=== PATIENT | male | born 1970 | race Hispanic/Latino ===

== ENCOUNTER → 2018-07-10 | Day surgery (SDC) | payer OTHER ==
[~2018-07-10] MED LIST: FENTANYL CITRATE/PF 100MCG/2 ML INJ ONE; HYOSCYAMINE SULFATE 0.5 MG/ML AMP ONE; LISINOPRIL2.5 MG PO; METFORMIN HCL500 MG PO; MIDAZOLAM HCL 2 MG/2 ML VIAL ONE; PANTOPRAZOLE SO40 MG PO; PRAVASTATIN SOD10 MG PO; PROPOFOL IV EMULSION 10 MG/ML 50 ML VIAL ONE
--- NOTE | 2018-07-10 13:32 | Operative Report ---
DATE OF PROCEDURE: July 10, 2018 REFERRING PHYSICIAN: Dr. Ba Gee PROCEDURE PERFORMED: Colonoscopy and polypectomy. INDICATIONS FOR COLONOSCOPY: Colorectal cancer screening and history of bright red blood per rectum. MEDICATION: Patient was done under MAC. Please see anesthesiologist's note. PROCEDURE: With the patient in the left lateral decubitus position, the flexible fiberoptic Olympus colonoscope was inserted into the rectum with ease and advanced all the way to the cecum. The scope was then withdrawn slowly, and the mucosa overlying the ascending and the transverse colon other than for some scattered diverticular disease appeared to be within normal limits. The transverse and descending grossly appeared to be within normal limits. Some diverticular disease was also noted in the sigmoid colon. Three polyps were hot biopsied from the sigmoid colon. The rectum appeared to be within normal limits. The scope was then retroflexed into the distal rectum and small internal hemorrhoids were noted, none of which was actively bleeding. The scope was then straightened out. It was subsequently withdrawn. Patient tolerated the procedure well. IMPRESSION 1. Diverticulosis. 2. Sigmoid colon polyps times 3, hot biopsied. 3. Internal hemorrhoids, none actively bleeding. PLAN: Follow up histology. Initiate high-fiber and low-fat diet. Initiate high-fiber supplement. Start hydrocortisone suppositories 25 mg 1 b.i.d. times 10 days and then p.r.n. Patient might benefit from a followup colonoscopy in 3 years. Job#: [id number] VT
== END | disposition home or self-care (01) ==
LOC: OR 09:07
PROVIDERS: ATTEND Internal Medicine Gastroenterology
DX: Z12.11 Encounter for screening for malignant neoplasm of colon (principal); R12 Heartburn; R92.1 Mammographic calcification found on diagnostic imaging of breast; E11.9 Type 2 diabetes mellitus without complications; E78.00 Pure hypercholesterolemia, unspecified; I10 Essential (primary) hypertension; K57.30 Diverticulosis of large intestine without perforation or abscess without bleeding; K64.8 Other hemorrhoids; K63.5 Polyp of colon; G47.33 Obstructive sleep apnea (adult) (pediatric); E78.5 Hyperlipidemia, unspecified; K21.9 Gastro-esophageal reflux disease without esophagitis
CPT/HCPCS: 36415; 45384; 82948; 93005; J1980; J2250

== ENCOUNTER → 2020-04-04 | Day surgery (SDC) | payer OTHER ==
[~2020-04-04] MED LIST changes: +GLUCAGON FOR INJ 1 MG VIAL ONE; +HYOSCYAMINE 0.125 MG TAB ONE; -HYOSCYAMINE SULFATE 0.5 MG/ML AMP ONE; +LIDOCAINE HCL 2% LOCAL INJ 5 ML SDV VIAL INJ ONE; -MIDAZOLAM HCL 2 MG/2 ML VIAL ONE; +MIDAZOLAM HCL 5 MG/ML VIAL ONE; +PROPOFOL IV EMULSION 10 MG/ML 20 ML VIAL ONE; -PROPOFOL IV EMULSION 10 MG/ML 50 ML VIAL ONE; +XIGDUO XR 5 MG1 EACH PO
--- OUTSIDE RECORDS SUMMARY | 2020-04-04 08:05 | XMS REPORT | Clinical Summary ---
Author Author [facility] Address Unknown Phone Unavailable Care Team Providers Care Health Concierge Name Role Phone Ashvin Galvin MD PCP Allergies No Known Allergies Medications End Date Status Medication Sig Dispensed Refills Start Date Active traMADol (ULTRAM) 50 mg TAKE 1 TABLET 0 tablet BY MOUTH 9 EVERY 4-6 HOURS NEEDED Active atorvastatin (LIPITOR) 10 Take 10 mg by 0 MG tablet mouth daily. Active pantoprazole (PROTONIX) Take 40 mg by 0 40 MG EC tablet mouth daily. Active lisinopril Take 2.5 mg 0 (PRINIVIL,ZESTRIL) 2.5 mg by mouth tablet daily. 06/26/2020 Active metFORMIN XR Take 1 tablet 180 tablet 3 (GLUCOPHAGE-XR) 500 mg 24 (500 mg 9 hr tabletIndications: total) by Diabetes mellitus type mouth 2 (two) II, non insulin dependent times a day (HCC) after meals. Active blood sugar diagnostic Test blood 200 strip 11 strips (CONTOUR TEST sugar BID for 9 STRIPS) strip test dx E11.9 stripsIndications: Diabetes mellitus type II, non insulin dependent (HCC) 06/21/2019 Discontinued (Reorder) metFORMIN (GLUCOPHAGE) Take 1 tablet 0 06/11/2 01 500 mg tablet by mouth 2 9 (two) times a day with meals. 06/27/2019 ipratropium (ATROVENT) 2 sprays into 30 mL 0 0 0.03 % nasal each nostril 9 sprayIndications: Acute 3 (three) non-recurrent maxillary times a day sinusitis for 7 days. 06/25/2019 amoxicillin-pot Take 1 tablet 10 tablet 0 06/20/20 1 clavulanate (AUGMENTIN) by mouth 2 9 875-125 mg per (two) times a tabletIndications: Acute day for 5 non-recurrent maxillary days. Take if sinusitis fever, worsening, or pus like drainage 06/27/2019 Discontinued metFORMIN (GLUCOPHAGE) Take 2 360 tablet 1 500 mg tabletIndications: tablets 9 Diabetes mellitus type (1,000 mg II, non insulin dependent total) by (HCC) mouth 2 (two) times a day with meals for 180 days. Active Problems Problem Noted Date S/P gastric surgery 06/20/2019 Overview: Gastric sleeve Diabetes mellitus type II, non insulin dependent Hyperlipidemia LDL goal <70 06/20/2019 GERD with esophagitis 06/20/2019 Encounters Care Team Description Date Type Specialty Christi Zamora MA Diabetes mellitus type II, non insulin d ependent ([facility]) (Primary Dx) 06/27/2019 Telephone Internal Medicine Ashvin Galvin MD Acute non-recurrent maxillary sinusitis (Primary Dx); Diabetes mellitus type II, non insulin dependent ([facility]); Establishing care with new doctor, encounter for 06/20/2019 Office Visit Internal Medicine after 04/04/2019 Family History Medical History Relation Name Comments Cancer Father Diabetes type II Father Hyperlipidemia Father Hypertension Father Kidney disease Father Obesity Mother Relation Name Status Comments Father Alive Mother Alive Social History Date Tobacco Use Types Packs/Day Years Used Never Smoker Smokeless Tobacco: Never Used Drinks/Week oz/Week Comments Alcohol Use Yes Sex Assigned at Date Recorded Not on file Industry Job Start Date Occupation Not on file Not on file Not on file Travel End Travel History Travel Start No recent travel history available. Last Filed Vital Signs Reading Time Taken Comments Vital Sign 128/82 06/20/2019 8:11 AM CDT Blood Pressure 77 06/20/2019 8:11 AM CDT Pulse - - Temperature - - Respiratory Rate - - Oxygen Saturation - - Inhaled Oxygen Concentration 83.9 kg (185 lb) 06/20/2019 8:11 AM CDT Weight 167.6 cm (5' 6") 06/20/2019 8:11 AM CDT Height 29.86 06/20/2019 8:11 AM CDT Body Mass Index Plan of Treatment Health Maintenance Due Date Last Done Comments DIABETIC RETINAL EYE EXAM 1970 DIABETIC FOOT EXAM 1980 URINE MICROALBUMIN 06/20/2020 06/20/2019 INFLUENZA VACCINE 06/23/2020 Procedures Comments Procedure Name Priority Date/Time Associated Diag nosis MICROSCOPIC EXAMINATION Routine 06/20/2019 8:57 AM CDT MICROALBUMIN / CREATININE Routine 06/20/2019 Diab etes mellitus type URINE RATIO 8:57 AM CDT II, non insulin dep endent (HCC) URINALYSIS, COMPLETE, Routine 06/20/2019 Diabetes mellitus type WITH REFLEX TO CULTURE 8:57 AM CDT II, non insuli n dependent (HCC) LDL CHOLESTEROL, DIRECT Routine 06/20/2019 Diabet es mellitus type 8:57 AM CDT II, non insulin dependent (HCC) CBC WITH PLATELET AND Routine 06/20/2019 Diabetes mellitus type DIFFERENTIAL 8:57 AM CDT II, non insulin dep endent (HCC) CHOLESTEROL Routine 06/20/2019 Diabetes mellit us type 8:57 AM CDT II, non insulin dependent (HCC) COMPREHENSIVE METABOLIC Routine 06/20/2019 Diabet es mellitus type PANEL 8:57 AM CDT II, non insulin dep endent (HCC) HDL CHOLESTEROL Routine 06/20/2019 Diabetes melli tus type 8:57 AM CDT II, non insulin dependent (HCC) HEMOGLOBIN A1C Routine 06/20/2019 Diabetes mellit us type 8:57 AM CDT II, non insulin dependent (HCC) after 04/04/2019 Results * URINALYSIS, COMPLETE, WITH REFLEX TO CULTURE (06/20/2019 8:57 AM CDT) Specific >=1.030 (A) 1.005 - 1.030 [facility] gravity, urine pH, urine 5.5 5.0 - 7.5 [facility] Color, UA Yellow Yellow [facility] Appearance Clear Clear [facility] WBC esterase, Negative Negative [facility] urine Protein, UA Negative Negative/Trace [facility] Glucose, urine 2+ (A) Negative [facility] Ketones, UA Trace (A) Negative [facility] Occult blood, Negative Negative [facility] urine Bilirubin, UA Negative Negative [facility] Urobilinogen, 1.0 0.2 - 1.0 mg/dL [facility] UA Nitrite, UA Negative Negative [facility] Microscopic CommentComment: Microscopic [facility] examination follows if indicated. Microscopic See below:Comment: Microscopic [facility] examination was indicated and was performed. Urinalysis CommentComment: This specimen [facility] reflex will not reflex to a Urine Culture. Specimen Narrative Performed At Performed at: [address] [place] [address] [address] Dynamometer Tester: Leonardo Plaza MD, Phone: [phone] Performing Organization Address [facility] one Number [facility] * Microscopic Examination (06/20/2019 8:57 AM CDT) WBC, UA 0-5 0 - 5 /hpf [facility] RBC, UA 0-2 0 - 2 /hpf [facility] Epithelial 0-10 0 - 10 /hpf [facility] cells (non renal) Crystals, urine Present (A) N/A [facility] Crystal type Calcium Oxalate N/A [facility] Mucus, UA Present Not Estab. [facility] Bacteria, UA Few None seen/Few [facility] Specimen Narrative Performed At Performed at: [address] [address] Dynamometer Tester: Leonardo Plaza MD, Phone: [phone] Performing Organization Address [facility] one Number [facility] * Microalbumin / creatinine urine ratio (06/20/2019 8:57 AM CDT) Creatinine, 207.1 Not Estab. mg/dL [facility] urine, random Albumin, urine 14.6 Not Estab. ug/mL [facility] Microalbumin/cr 7.0 0.0 - 30.0 mg/g [facility] eatinine ratio Comment: creat Normal: 0.0 - 30.0 Albuminuria: 31.0 - 300.0 Clinical albuminuria: >300.0 Specimen Urine Narrative Performed At Performed at: [address] [place], [place] [address] [address] Dynamometer Tester: Leonardo Plaza MD, Phone: [phone] Performing Organization Address [facility] one Number [facility] * CBC with platelet and differential (06/20/2019 8:57 AM CDT) WBC 4.5 3.4 - 10.8 x10E3/uL [facility] RBC 5.07 4.14 - 5.80 x10E6/uL [facility] HGB 12.4 (L) 13.0 - 17.7 g/dL [facility] HCT 37.4 (L) 37.5 - 51.0 % [facility] MCV 74 (L) 79 - 97 fL [facility] MCH 24.5 (L) 26.6 - 33.0 pg [facility] MCHC 33.2 31.5 - 35.7 g/dL [facility] RDW 17.0 (H) 12.3 - 15.4 % [facility] Platelet count 275 150 - 450 x10E3/uL [facility] Neutrophils 50 Not Estab. % [facility] Lymphocytes 39 Not Estab. % [facility] Monocytes 9 Not Estab. % [facility] Eosinophils 1 Not Estab. % [facility] Basophils 1 Not Estab. % [facility] Neutrophils, 2.2 1.4 - 7.0 x10E3/uL [facility] absolute Lymphocytes, 1.8 0.7 - 3.1 x10E3/uL [facility] absolute Monocytes, 0.4 0.1 - 0.9 x10E3/uL [facility] absolute Eosinophils, 0.0 0.0 - 0.4 x10E3/uL [facility] absolute Basophils, 0.0 0.0 - 0.2 x10E3/uL [facility] absolute Immature 0 Not Estab. % [facility] granulocytes Immature grans 0.0 0.0 - 0.1 x10E3/uL [facility] (abs) Specimen Blood Narrative Performed At Performed at: 01 - [facility] [place] [address] Dynamometer Tester: Leonardo Plaza MD, Phone: [phone] Performing Organization Address [facility] one Number [facility] * LDL cholesterol, direct (06/20/2019 8:57 AM CDT) LDL cholesterol 75 0 - 99 mg/dL [facility] Specimen Blood Narrative Performed At Performed at: 01 - [facility] [address], [place], [place] [address] Dynamometer Tester: Leonardo Plaza MD, Phone: [phone] Performing Organization Address [facility] one [facility] * HDL cholesterol (06/20/2019 8:57 AM CDT) HDL cholesterol 48 >39 mg/dL [facility] Specimen Blood Narrative Performed At Performed at: [address] [place] [address] Dynamometer Tester: Leonardo Plaza MD, Phone: [phone] Performing Organization Address [facility] * Hemoglobin A1c (06/20/2019 8:57 AM CDT) [facility] Hemoglobin A1C 8.3 (H) 4.8 - 5.6 % [facility] Comment: Prediabetes: 5.7 - 6.4 Diabetes: >6.4 Glycemic control for adults with diabetes: <7.0 Specimen Blood Narrative Performed At Performed at: [address] [address] Dynamometer Tester: Leonardo Plaza MD, Phone: [phone] Performing Organization Address [facility] one [facility] * Cholesterol (06/20/2019 8:57 AM CDT) Pathologist [facility] Cholesterol 138 100 - 199 mg/dL [facility] Specimen Blood Narrative Performed At Performed at: [address] [address] Dynamometer Tester: Leonardo Plaza MD, Phone: [phone] Performing Organization Address [facility] [address] [facility] * Comprehensive metabolic panel (06/20/2019 8:57 AM CDT) Glucose 145 (H) 65 - 99 mg/dL [facility] BUN 19 6 - 24 mg/dL [facility] Creatinine 0.74 (L) 0.76 - 1.27 mg/dL [facility] EGFR Non-Afr. 108 >59 mL/min/1.73 [facility] [place] EGFR 125 >59 mL/min/1.73 [facility] [place] BUN/creatinine 26 (H) 9 - 20 [facility] ratio Sodium 140 134 - 144 mmol/L [facility] Potassium 4.2 3.5 - 5.2 mmol/L [facility] Chloride 101 96 - 106 mmol/L [facility] CO2 24 20 - 29 mmol/L [facility] Calcium 8.6 (L) 8.7 - 10.2 mg/dL [facility] Protein 7.2 6.0 - 8.5 g/dL [facility] Albumin, S 4.3 3.5 - 5.5 g/dL [facility] Globulin, total 2.9 1.5 - 4.5 g/dL [facility] Albumin/globuli 1.5 1.2 - 2.2 [facility] n ratio Total bilirubin 0.5 0.0 - 1.2 mg/dL [facility] Alkaline 82 39 - 117 IU/L [facility] phosphatase AST 16 0 - 40 IU/L [facility] ALT 17 0 - 44 IU/L [facility] Specimen Blood Narrative Performed At Performed at: 01 - [facility] [address] [place], [place] [address] Dynamometer Tester: Leonardo Plaza MD, Phone: [phone] Performing Organization Address City/State/Zipcode Ph one Number [facility] after 04/04/2019 Insurance Type Payer Benefit Subscriber ID Effective Phone Address Plan / Dates Group [facility] [id number] xxxxxxxxxxxx 2018- MULTISTATE Present IEBP Advance Directives For more information, please contact: [phone] Patient Assistant Speech Language Pathologist Explanation Type Date Recorded Advance Directives, Living Will and Medical Power of Burr Bench Operator
--- OUTSIDE RECORDS SUMMARY | 2020-04-04 08:05 | XMS REPORT | Continuity of Care Document ---
Author Author [employer] Organization [employer] Address Unknown Phone Unavailable Care Team Providers Care Traveling Phlebotomist Name Role Phone CarePayment Information Exchange Unavailable Un available Problems Problem Status Onset Date Classification Date Reported Comments Source RT SIDE PAIN Active 12/15/2014 [facility] MORBID OBESITY Active 09/18/2014 [facility] 729.5 - PAIN IN LIMB Active 10/13/2012 [facility] Diabetes mellitus (disorder) A ctive Problem [facility] Hypertensive disorder, systemic arterial (disorder) Resolved Problem 10/13/2015 [facility] Morbid obesity (disorder) Acti ve Problem [facility], [facility] Sleep apnea (finding) Active Problem 10/13/2015 [facility], [facility] MORBID OBESITY Active [facility] ABDMNAL PAIN UNSPCF SITE Active [facility] Medications Medication Details Route Status Patient Instructions Ordering Provider Order Date Source Lovenox Notes: (Same as: Loven ox) Inactive 12/15/2014 [facility] Zofran Notes: (Same as: Zofran) Inactive 12/15/2014 [facility] Morphine Notes: (Same as:MORPh ine Sulfate) Inactive 12/15/2014 [facility] LR IV 1,000 mL 1,000 mL, Rate: 100 ml/hr, Infuse over: 10 hr, Route: IV, Dosing Weight 87.273 kg, Total Volume: 1,000, Start date: 12/15/14 10:27:00, Duration: 30 day, Stop date: 01/14/15 10:26:00 Inactive 12/15/2014 [facility] Iohexol Special Instructions: Dose = 2.2ml/kg, Max dose = 100ml -- "To be infused by Radiology Staff ONLY" Inactive 12/15/2014 [facility]ter Iohexol Notes: (same as:Omnipa que 350). Inactive 12/15/2014 [facility] Zofran Notes: (Same as: Zofran) Inactive 12/15/2014 [facility] Morphine Notes: (Same as:MORPh ine Sulfate) Inactive 12/15/2014 [facility] Promethazine Hydrochloride 25 MG Rectal Suppository [Phenergan] 25 mg = 1 supp, MD, Q6H, Nausea & Vomiti ng, # 9 supp, 0 Refill(s) Active 10/18/2014 [facility] Tylenol with Codeine 120 mg-12 mg/5 mL oral liquid 15 mL, PO, Q6H, Pain Score 1-3, # 240 mL, 0 Refill(s) Active 10/18/2014 [facility]ter Phenergan Notes: (Same as: Phe nergan) Inactive 10/18/2014 [facility] Promethazine Hydrochloride 25 MG Rectal Suppository [Phenergan] 25 mg = 1 supp, MD, Q6H, Nausea & Vomiti ng, # 9 supp, 0 Refill(s) Inactive 10/18/2014 [facility] Tylenol with Codeine 120 mg-12 mg/5 mL oral liquid 15 mL, PO, Q6H, Pain Score 1-3, # 240 mL, 0 Refill(s) Inactive 10/18/2014 [facility] Lovenox Notes: (Same as: Loven ox) No Longer Active 10/18/2014 [facility] Tylenol with Codeine 120 mg-12 mg/5 mL oral liquid Notes: (acetaminophen-codeine 120-12 mg/5 ml oral liq) Do not exceed 4gm/day of acetaminophen. (Same as: Tylenol w/Codeine) No Longer Active 10/17/2014 [facility] Acetaminophen 300 MG / Codeine Phosphate 30 MG Oral Tablet [Tylenol with Codeine #3] 1 tab, Route: PO, Drug Form: TAB, Dosing Weight 97.273, kg, Q6H, PRN Pain Score 1-3, Start date: 10/17/14 15:06:00, Duration: 30 day, Stop date: 11/16/14 15:05:00 Inactive 10/17/2014 [facility] Glucagon 1 mg, Route: IM, Drug form: PDR/INJ, PRN, Dosing Weight 97.273, kg, PRN Blood Glucose Results, Start date: 10/16/14 19:18:00, Duration: 30 day, Stop date: 11/15/14 19:17:00 No Longer Active 10/17/2014 [facility] Insulin, Regular, Pork 60 un its) Stable for 28 days at room temperature Expires in days from Date No Longer Active 10/17/2014 [facility] Dextrose 50% Syringe 25 gm, 50 mL, Route: IVP, Drug Form: INJ, Dosing Weight 97.273, kg, PRN, PRN Blood Glucose Results, Start date: 10/16/14 19:18:00, Duration: 30 day, Stop date: 11/15/14 19:17:00 No Longer Active 10/17/2014 [facility] Ondansetron 4 mg, Route: IV, O NCE, Dosing Weight 97.273, kg, Start date: 10/16/14 18:50:00, Stop date: 10/16/14 18:50:00 Inactive 10/17/2014 [facility]: Pharmacy: Use w ithin 6 hours of opening vial or transferring to another container. Discard any unused portion. No Longer Active 10/17/2014 [facility] Hydromorphone Notes: (Same as: Dilaudid) conc = 0.5 mg/ml Hydromorphone PLANER OPERATOR / GRADER Dose: ;Delay: ;Basal: No Longer Active 10/17/2014 [facility] Hydromorphone Notes: Same as: Dilaudid Inactive 10/16/2014 [facility] Morphine Notes: (Same as:MORPh ine Sulfate) Inactive 10/16/2014 [facility] Ondansetron Notes: (Same as: Arnav teran) Inactive 10/16/2014 [facility] Naloxone Notes: Same as Narcan No Longer Active 10/16/2014 [facility] LR IV 1,000 mL 1,000 mL, Rate: 125 ml/hr, Infuse over: 8 hr, Route: IV, Dosing Weight 97.273 kg, Total Volume: 1,000, Start date: 10/16/14 17:44:00, Duration: 30 day, Stop date: 11/15/14 17:43:00 No Longer Active 10/16/2014 [facility] Zofran Notes: (Same as: Zofran) No Longer Active 10/16/2014 [facility] bupivacaine liposome Notes: (S leonor as: Exparel) NOT FOR IV use Postoperative analgesia: Infiltration (local): Dose is based on surgical site and volume required to cover the area (in general, the maximum total dose is 266 mg). Bunionectomy: 7 mL into the tissues surrounding the osteotomy and 1 mL into the subcutaneous tissue of the surgical site (total dose = 8 mL [106 mg]) Hemorrhoidectomy: 30 mL (20 mL vial diluted with 10 mL NS) divided and administered as 6 injections of 5 mL each (total dose = 30 mL [266 mg]) Inactive 10/16/2014 [facility] Mefoxin Notes: (Same As: Mefox in) No Longer Active 10/16/2014 [facility] heparin Notes: porcine heparin Inactive 10/16/2014 [facility] scopolamine Notes: Change patc h every 72 hours (Same as: Transderm-Scop) Inactive 10/16/2014 [facility] glimepiride 0 Refill(s) No Longer Active 10/11/2014 [facility] glimepiride 2 mg oral tablet 2 mg = 1 tab, PO, Daily, # 30 tab, 0 Refill(s) No Longer Active 10/11/2014 [facility] Fenofibrate 130 MG Oral Capsule 130 mg = 1 cap, PO, Daily, # 30 cap, 0 Refill(s) N o Longer Active 10/11/2014 [facility] Metformin 500 mg, PO, Daily, 0 Refill(s) No Longer Active 10/11/2014 [facility] Allergies, Adverse Reactions, Alerts No Known Medication Allergies Immunizations No Data Provided for This Section Results Order Name Results Value Reference Range Date Interpretation Comments Source CHEM PANEL Total Protein 7.2 6.4 - 8.4 12/15/2014 [facility] CHEM PANEL Albumin Lvl 3.5 3.5 - 5.0 12/15/2014 [facility] CHEM PANEL ALT 36 0 - 65 12/15/2014 [facility] CHEM PANEL Alk Phos 76 39 - 136 12/15/2014 [facility] CHEM PANEL Bili Direct 0.2 0.0 - 0.3 12/15/2014 [facility] CHEM PANEL AST 27 0 - 37 12/15/2014 [facility] CHEM PANEL Bili Total 1.3 0.2 - 1.3 12/15/2014 [facility] CHEM PANEL A/G Ratio 0.9 0.7 - 1.6 12/15/2014 [facility] CHEM PANEL Bili Indirect 1.1 0.0 - 1.0 12/15/2014 [facility] CHEM PANEL Globulin 3.7 2.0 - 4.0 12/15/2014 [facility] HEMATOLOGY MCHC 32.4 32.0 - 36.0 12/15/2014 [facility] HEMATOLOGY MCV 85.6 80.0 - 94.0 12/15/2014 [facility] HEMATOLOGY Hct 42.4 42.0 - 54.0 12/15/2014 [facility] HEMATOLOGY MCH 27.8 27.0 - 31.0 12/15/2014 [facility] HEMATOLOGY RDW 12.6 11.5 - 14.5 12/15/2014 [facility] HEMATOLOGY Platelet 267 133 - 450 12/15/2014 [facility] HEMATOLOGY MPV 8.5 7.4 - 10.4 12/15/2014 [facility] HEMATOLOGY WBC 8.0 3.7 - 10.4 12/15/2014 [facility] HEMATOLOGY RBC 4.95 4.70 - 6.10 12/15/2014 [facility] HEMATOLOGY Hgb 13.8 14.0 - 18.0 12/15/2014 [facility] HEMATOLOGY Basophils 0.9 0.0 - 1.0 12/15/2014 [facility] HEMATOLOGY Segs-Bands # 5.2 1.5 - 8.1 12/15/2014 [facility] HEMATOLOGY Eosinophils # 0.0 0.0 - 0.5 12/15/2014 [facility] HEMATOLOGY Basophils # 0.1 0.0 - 0.2 12/15/2014 [facility] HEMATOLOGY Lymphocytes # 2.2 1.0 - 5.5 12/15/2014 [facility] HEMATOLOGY Monocytes # 0.5 0.0 - 0.8 12/15/2014 [facility] HEMATOLOGY Segs 64.9 45.0 - 75.0 12/15/2014 [facility] HEMATOLOGY Lymphocytes 27.2 20.0 - 40.0 12/15/2014 [facility] HEMATOLOGY Monocytes 6.5 2.0 - 12.0 12/15/2014 [facility] HEMATOLOGY Eosinophils 0.5 0.0 - 4.0 12/15/2014 [facility] IMMUNOLOGY CDC HIV 4th GEN Negat omi (12/15/14 1:42 AM) Negative 12/15/2014 [facility] CARDIAC ENZYMES Troponin-I <0.02 0.00 - 0.40 12/15/2014 [facility] CHEM PANEL Bili Total 1.3 0.2 - 1.3 12/15/2014 [facility] CHEM PANEL Alk Phos 82 39 - 136 12/15/2014 [facility] CHEM PANEL AST 39 0 - 37 12/15/2014 [facility] CHEM PANEL Bili Direct 0.4 0.0 - 0.3 12/15/2014 [facility] CHEM PANEL Total Protein 7.8 6.4 - 8.4 12/15/2014 [facility] CHEM PANEL Albumin Lvl 4.0 3.5 - 5.0 12/15/2014 [facility] CHEM PANEL ALT 43 0 - 65 12/15/2014 [facility] CHEM PANEL Bili Indirect 0.9 0.0 - 1.0 12/15/2014 [facility] CHEM PANEL A/G Ratio 1.1 0.7 - 1.6 12/15/2014 [facility] CHEM PANEL Globulin 3.8 2.0 - 4.0 12/15/2014 [facility] CHEM PANEL Lipase Lvl 153 73 - 393 12/15/2014 [facility] CHEM PANEL Glucose Lvl 162 70 - 99 12/15/2014 <sup>2</sup>Interpretive Data: Adult ref erence range values reflect the clinical guidelines
of the [place] [employer]. [facility] CHEM PANEL Chloride Lvl 101 95 - 109 12/15/2014 [facility] CHEM PANEL Creatinine Lvl 0.8 0.5 - 1.4 12/15/2014 [facility] CHEM PANEL Potassium Lvl 3.9 3.5 - 5.1 12/15/2014 [facility] CHEM PANEL BUN 16 7 - 22 12/15/2014 [facility] CHEM PANEL Sodium Lvl 140 135 - 145 12/15/2014 [facility] CHEM PANEL Calcium Lvl 8.7 8.5 - 10.5 12/15/2014 [facility] CHEM PANEL CO2 29 24 - 32 12/15/2014 [facility] CHEM PANEL eGFR 109 12/15/2014 <sup>1</sup>Result Comment: The eGFR is calculated using the CKD-EPI formula. In most young, healthy individuals the eGFR will be >90 mL/min/1.73m2. The eGFR declines with age. An eGFR of 60-89 may be normal in some populations, particularly the elderly, for whom the CKD-EPI formula has not been extensively validated. Use of the eGFR is not recommended in the following populations:& lt;br/>
Individuals with unstable creatinine concentrations, including patients and those with serious co-morbid conditions.

Patients with extremes in muscle mass or diet.

The data above are obtained from the National Kidney Disease Education Program (NKDEP) which additionally recommends that when the eGFR is used in patients with extremes of body mass index for purposes of drug dosing, the eGFR should be multiplied by the estimated BMI. [facility] CHEM PANEL AGAP 13.9 10.0 - 20.0 12/15/2014 [facility] HEMATOLOGY RBC Morph Lita l (12/15/14 1:33 AM) 12/15/2014 [facility] HEMATOLOGY Monocytes 6.0 2.0 - 12.0 12/15/2014 [facility] HEMATOLOGY Plt Morph Lita l (12/15/14 1:33 AM) 12/15/2014 [facility] HEMATOLOGY Atypical Lymphs 0.0 <=0.0 % 12/15/2014 [facility] HEMATOLOGY Lymphocytes 17.0 20.0 - 40.0 12/15/2014 [facility] HEMATOLOGY Segs 77.0 45.0 - 75.0 12/15/2014 [facility] HEMATOLOGY Monocytes # 0.7 0.0 - 0.8 12/15/2014 [facility] HEMATOLOGY Bands 0.0 0.0 - 11.0 12/15/2014 [facility] HEMATOLOGY Lymphocytes # 2.0 1.0 - 5.5 12/15/2014 [facility] HEMATOLOGY Segs-Bands # 9.0 1.5 - 8.1 12/15/2014 [facility] HEMATOLOGY Platelet 272 133 - 450 12/15/2014 [facility] HEMATOLOGY MPV 8.4 7.4 - 10.4 12/15/2014 [facility] HEMATOLOGY MCV 84.6 80.0 - 94.0 12/15/2014 [facility] HEMATOLOGY Hct 44.7 42.0 - 54.0 12/15/2014 [facility] HEMATOLOGY MCHC 33.4 32.0 - 36.0 12/15/2014 [facility] HEMATOLOGY MCH 28.3 27.0 - 31.0 12/15/2014 [facility] HEMATOLOGY Hgb 14.9 14.0 - 18.0 12/15/2014 [facility] HEMATOLOGY RBC 5.28 4.70 - 6.10 12/15/2014 [facility] HEMATOLOGY WBC 11.7 3.7 - 10.4 12/15/2014 [facility] HEMATOLOGY RDW 12.4 11.5 - 14.5 12/15/2014 [facility] CHEM PANEL eGFR 109 10/18/2014 <sup>1</sup>Result Comment: The eGFR is calculated using the CKD-EPI formula. In most young, healthy individuals the eGFR will be >90 mL/min/1.73m2. The eGFR declines with age. An eGFR of 60-89 may be normal in some populations, particularly the elderly, for whom the CKD-EPI formula has not been extensively validated. Use of the eGFR is not recommended in the following populations:& lt;br/>
Individuals with unstable creatinine concentrations, including patients and those with serious co-morbid conditions.

Patients with extremes in muscle mass or diet.

The data above are obtained from the National Kidney Disease Education Program (NKDEP) which additionally recommends that when the eGFR is used in patients with extremes of body mass index for purposes of drug dosing, the eGFR should be multiplied by the estimated BMI. [facility] CHEM PANEL Calcium Lvl 8.1 8.5 - 10.5 10/18/2014 [facility] CHEM PANEL Chloride Lvl 101 95 - 109 10/18/2014 [facility] CHEM PANEL CO2 27 24 - 32 10/18/2014 [facility] CHEM PANEL Potassium Lvl 3.7 3.5 - 5.1 10/18/2014 [facility] CHEM PANEL Sodium Lvl 139 135 - 145 10/18/2014 [facility] CHEM PANEL Creatinine Lvl 0.8 0.5 - 1.4 10/18/2014 [facility] CHEM PANEL BUN 6 7 - 22 10/18/2014 [facility] CHEM PANEL Glucose Lvl 109 70 - 99 10/18/2014 <sup>4</sup>Interpretive Data: Adult ref erence range values reflect the clinical guidelines
of the [place] [employer]. [facility] CHEM PANEL AGAP 14.7 10.0 - 20.0 10/18/2014 [facility] HEMATOLOGY Segs-Bands # 6.9 1.5 - 8.1 10/18/2014 [facility] HEMATOLOGY Lymphocytes # 1.9 1.0 - 5.5 10/18/2014 [facility] HEMATOLOGY Basophils 0.6 0.0 - 1.0 10/18/2014 [facility] HEMATOLOGY Basophils # 0.1 0.0 - 0.2 10/18/2014 [facility] HEMATOLOGY Monocytes # 1.1 0.0 - 0.8 10/18/2014 [facility] HEMATOLOGY Eosinophils # 0.1 0.0 - 0.5 10/18/2014 [facility] HEMATOLOGY Eosinophils 0.7 0.0 - 4.0 10/18/2014 [facility] HEMATOLOGY Monocytes 11.0 2.0 - 12.0 10/18/2014 [facility] HEMATOLOGY Lymphocytes 18.9 20.0 - 40.0 10/18/2014 [facility] HEMATOLOGY Segs 68.8 45.0 - 75.0 10/18/2014 [facility] HEMATOLOGY RDW 13.5 11.5 - 14.5 10/18/2014 [facility] HEMATOLOGY MCHC 34.1 32.0 - 36.0 10/18/2014 [facility] HEMATOLOGY MCV 86.9 80.0 - 94.0 10/18/2014 [facility] HEMATOLOGY MCH 29.6 27.0 - 31.0 10/18/2014 [facility] HEMATOLOGY Platelet 250 133 - 450 10/18/2014 [facility] HEMATOLOGY MPV 8.7 7.4 - 10.4 10/18/2014 [facility] HEMATOLOGY Hgb 14.1 14.0 - 18.0 10/18/2014 [facility] HEMATOLOGY Hct 41.3 42.0 - 54.0 10/18/2014 [facility] HEMATOLOGY WBC 10.0 3.7 - 10.4 10/18/2014 [facility] HEMATOLOGY RBC 4.76 4.70 - 6.10 10/18/2014 [facility] HEMATOLOGY Hct 39.3 42.0 - 54.0 10/17/2014 [facility] HEMATOLOGY MCV 85.3 80.0 - 94.0 10/17/2014 [facility] HEMATOLOGY MCH 28.7 27.0 - 31.0 10/17/2014 [facility] HEMATOLOGY MCHC 33.7 32.0 - 36.0 10/17/2014 [facility] HEMATOLOGY RDW 13.4 11.5 - 14.5 10/17/2014 [facility] HEMATOLOGY Platelet 282 133 - 450 10/17/2014 [facility] HEMATOLOGY MPV 8.7 7.4 - 10.4 10/17/2014 [facility] HEMATOLOGY WBC 13.5 3.7 - 10.4 10/17/2014 [facility] HEMATOLOGY RBC 4.60 4.70 - 6.10 10/17/2014 [facility] HEMATOLOGY Hgb 13.2 14.0 - 18.0 10/17/2014 [facility] HEMATOLOGY Monocytes # 0.9 0.0 - 0.8 10/17/2014 [facility] HEMATOLOGY Basophils 0.3 0.0 - 1.0 10/17/2014 [facility] HEMATOLOGY Lymphocytes # 2.2 1.0 - 5.5 10/17/2014 [facility] HEMATOLOGY Segs-Bands # 10.4 1.5 - 8.1 10/17/2014 [facility] HEMATOLOGY Segs 76.9 45.0 - 75.0 10/17/2014 [facility] HEMATOLOGY Monocytes 6.5 2.0 - 12.0 10/17/2014 [facility] HEMATOLOGY Lymphocytes 16.3 20.0 - 40.0 10/17/2014 [facility] CHEM PANEL Magnesium Lvl 1.8 1.8 - 2.4 10/17/2014 [facility] CHEM PANEL Phosphorus 3.7 2.5 - 4.5 10/17/2014 [facility] ELECTROLYTES AGAP 13.5 10.0 - 20.0 10/17/2014 [facility] ELECTROLYTES Calcium Lvl 7.9 8.5 - 10.5 10/17/2014 [facility] ELECTROLYTES eGFR 109 10/17/2014 <sup>2</sup>Result Comment: The eGFR is calculated using the CKD-EPI formula. In most young, healthy individuals the eGFR will be >90 mL/min/1.73m2. The eGFR declines with age. An eGFR of 60-89 may be normal in some populations, particularly the elderly, for whom the CKD-EPI formula has not been extensively validated. Use of the eGFR is not recommended in the following populations:& lt;br/>
Individuals with unstable creatinine concentrations, including patients and those with serious co-morbid conditions.

Patients with extremes in muscle mass or diet.

The data above are obtained from the National Kidney Disease Education Program (NKDEP) which additionally recommends that when the eGFR is used in patients with extremes of body mass index for purposes of drug dosing, the eGFR should be multiplied by the estimated BMI. [facility] ELECTROLYTES BUN 13 7 - 22 10/17/2014 [facility] ELECTROLYTES Glucose Lvl 112 70 - 99 10/17/2014 <sup>5</sup>Interpretive Data: Adult ref erence range values reflect the clinical guidelines
of the [place] [employer]. [facility] ELECTROLYTES Sodium Lvl 137 135 - 145 10/17/2014 [facility] ELECTROLYTES Creatinine Lvl 0.8 0.5 - 1.4 10/17/2014 [facility] ELECTROLYTES Chloride Lvl 103 95 - 109 10/17/2014 [facility] ELECTROLYTES CO2 25 24 - 32 10/17/2014 [facility] ELECTROLYTES Potassium Lvl 4.5 3.5 - 5.1 10/17/2014 [facility] BLOOD BANK RESULTS ABO/Rh B POS 10/16/2014 [facility] BLOOD BANK RESULTS Antibody Scrn Negative (10/16/14 1:50 PM) 10/16/2014 [facility] CHEM PANEL Globulin 4.1 2.0 - 4.0 10/11/2014 [facility] CHEM PANEL B/C Ratio 19 6 - 25 10/11/2014 [facility] CHEM PANEL AGAP 16.8 10.0 - 20.0 10/11/2014 [facility] CHEM PANEL A/G Ratio 1.0 0.7 - 1.6 10/11/2014 [facility] CHEM PANEL eGFR 104 10/11/2014 <sup>3</sup>Result Comment: The eGFR is calculated using the CKD-EPI formula. In most young, healthy individuals the eGFR will be >90 mL/min/1.73m2. The eGFR declines with age. An eGFR of 60-89 may be normal in some populations, particularly the elderly, for whom the CKD-EPI formula has not been extensively validated. Use of the eGFR is not recommended in the following populations:& lt;br/>
Individuals with unstable creatinine concentrations, including patients and those with serious co-morbid conditions.

Patients with extremes in muscle mass or diet.

The data above are obtained from the National Kidney Disease Education Program (NKDEP) which additionally recommends that when the eGFR is used in patients with extremes of body mass index for purposes of drug dosing, the eGFR should be multiplied by the estimated BMI. [facility] CHEM PANEL Bili Total 1.4 0.2 - 1.3 10/11/2014 [facility] CHEM PANEL Sodium Lvl 136 135 - 145 10/11/2014 [facility] CHEM PANEL Creatinine Lvl 0.9 0.5 - 1.4 10/11/2014 [facility] CHEM PANEL BUN 17 7 - 22 10/11/2014 [facility] CHEM PANEL Glucose Lvl 199 70 - 99 10/11/2014 <sup>6</sup>Interpretive Data: Adult ref erence range values reflect the clinical guidelines
of the [place] [employer]. [facility] CHEM PANEL Chloride Lvl 99 95 - 109 10/11/2014 [facility] CHEM PANEL Potassium Lvl 3.8 3.5 - 5.1 10/11/2014 [facility] CHEM PANEL Calcium Lvl 8.8 8.5 - 10.5 10/11/2014 [facility] CHEM PANEL CO2 24 24 - 32 10/11/2014 [facility] CHEM PANEL ALT 54 0 - 65 10/11/2014 [facility] CHEM PANEL Albumin Lvl 4.1 3.5 - 5.0 10/11/2014 [facility] CHEM PANEL Total Protein 8.2 6.4 - 8.4 10/11/2014 [facility] [facility] CHEM PANEL Alk Phos 76 39 - 136 10/11/2014 [facility] CHEM PANEL AST 43 0 - 37 10/11/2014 [facility] HEMATOLOGY Basophils 1.2 0.0 - 1.0 10/11/2014 [facility] HEMATOLOGY Monocytes # 0.5 0.0 - 0.8 10/11/2014 [facility] HEMATOLOGY Eosinophils 0.9 0.0 - 4.0 10/11/2014 [facility] HEMATOLOGY Monocytes 6.7 2.0 - 12.0 10/11/2014 [facility] HEMATOLOGY Eosinophils # 0.1 0.0 - 0.5 10/11/2014 [facility] HEMATOLOGY Basophils # 0.1 0.0 - 0.2 10/11/2014 [facility] HEMATOLOGY Segs 56.5 45.0 - 75.0 10/11/2014 [facility] HEMATOLOGY Lymphocytes # 2.5 1.0 - 5.5 10/11/2014 [facility] HEMATOLOGY Segs-Bands # 4.1 1.5 - 8.1 10/11/2014 [facility] HEMATOLOGY Lymphocytes 34.7 20.0 - 40.0 10/11/2014 [facility] HEMATOLOGY Hct 46.2 42.0 - 54.0 10/11/2014 [facility] HEMATOLOGY MPV 8.6 7.4 - 10.4 10/11/2014 [facility] HEMATOLOGY Platelet 328 133 - 450 10/11/2014 [facility] HEMATOLOGY MCHC 33.7 32.0 - 36.0 10/11/2014 [facility] HEMATOLOGY MCH 29.0 27.0 - 31.0 10/11/2014 [facility] HEMATOLOGY RBC 5.37 4.70 - 6.10 10/11/2014 [facility] HEMATOLOGY Hgb 15.6 14.0 - 18.0 10/11/2014 [facility] HEMATOLOGY RDW 13.7 11.5 - 14.5 10/11/2014 [facility] HEMATOLOGY MCV 86.0 80.0 - 94.0 10/11/2014 [facility] HEMATOLOGY WBC 7.3 3.7 - 10.4 10/11/2014 [facility] SPECIAL CHEMISTRY Hgb A1C 8.3 <=5.6 % 10/11/2014 [facility] URINE AND STOOL UA Urobilinogen <=1.0 mg/dL 0.1 - 1.0 10/11/2014 [facility] URINE AND STOOL UA Nitrite Negative (10/11/14 12:40 PM) Negative 10/11/2014 [facility] URINE AND STOOL UA Leuk Est Negative (10/11/14 12:40 PM) Negative 10/11/2014 [facility] URINE AND STOOL Micro? Not Indicated *NA* (10/11/14 12:40 PM) 10/11/2014 [facility] URINE AND STOOL UA RBC <1 0 - 2 10/11/2014 [facility] URINE AND STOOL UA WBC 2 0 - 5 10/11/2014 [facility] URINE AND STOOL UA Mucus Few /LPF None Seen /LPF 10/11/2014 [facility] URINE AND STOOL UA Ketones Negative mg/dL Negative mg/dL 10/11/2014 [facility] URINE AND STOOL UA Bili Negative *NA* (10/11/14 12:40 PM) Negative 10/11/2014 [facility] URINE AND STOOL UA Blood Negative (10/11/14 12:40 PM) Negative 10/11/2014 [facility] URINE AND STOOL UA Turbidity Clear (10/11/14 12:40 PM) Clear 10/11/2014 [facility] URINE AND STOOL UA Color Yellow *NA* (10/11/14 12:40 PM) Yellow 10/11/2014 [facility] URINE AND STOOL UA pH 5.0 5.0 - 8.0 10/11/2014 [facility] URINE AND STOOL UA Spec Grav 1.015 <=1.030 10/11/2014 [facility] URINE AND STOOL UA Protein Negative mg/dL Negative mg/dL 10/11/2014 [facility] URINE AND STOOL UA Glucose 150 mg/dL Negative mg/dL 10/11/2014 [facility] Pathology Reports No Data Provided for This Section Diagnostic Reports Report Value Date Source Bone Density-Dual Energy Absorptionmetry EXAM: DEXA study DATE: 10/10/2015 at 1106 hours. INDICATION: screening for osteoporosis. TECHNIQUE: Lumbar spine and left hip bone mineral densities were measured using Wallept System. Lumbar spine: L1-L4 average bone mineral density is 1.055 gm/cm2 with a T score of -1.4. Left hip: The left femoral neck and total hip bone mineral densities are 0.865 and 0.923 gm/cm2 with a T score of -1.6 and -1.2 respectively. IMPRESSION: 1. Osteopenia of the left femoral neck. 2. Osteopenia of the lumbar spine. 3. Osteopenia of the total left hip. 4. Patient is at increased risk for frac ture. 10/10/2015 [facility] Upper GI series DX EXAM: UPPER GI DATE: 12/14/2014 at 1112 hours. INDICATION: Nausea vomiting. Gastric sleave in September 2014.. ADDITIONAL INFORMATION: None. COMPARISON: CT abdomen and pelvis 12/15/2014. TECHNIQUE: Bariatric Upper GI Protocol: Limited upper GI examination was performed by giving the patient two 20 cc swallows of Omnipaque 300 orally. Frontal baggage smasher and multiple view post contrast radiographs were obtained. FINDINGS: Fisheries Manager radiograph demonstrates no significant abnormalities. Oral contrast readily enters the gastric pouch and proximal small bowel without evidence of obstruction or leak. IMPRESSION: 1. No evidence of proximal obstruction o r leak. 12/15/2014 [facility] Abdomen/Pelvis w IV contrast CT EXAM: CT ABDOMEN AND PELVIS, W/ CONTRAST, DATE: 12/15/2014 at 2:37 a.m. INDICATION: Acute abdominal pain. Following intravenous administration of 99 cc of Omnipaque 350 mg/ml , axially oriented images were obtained from the lung bases through the ischial tuberosities. Delayed imaging was then performed through the kidneys, using a radiation reduction technique. Sagittal and coronal reformat images of the entire torso are provided in multiple series. The intravenous contrast administration was without complication. No oral contrast was administered. FINDINGS: Bibasilar subsegmental atelectasis seen. A right lower lobe calcific granuloma visualized.. Liver: Normal size and attenuation. Hepatic veins and portal veins are unremarkable. Gallbladder: Mildly overdistended. Hypodense intraluminal content. No wall thickening or pericholecystic fluid. Common bile duct and intrahepatic biliary radicles: Not dilated. Spleen: Normal size and attenuation . Pancreas: Unremarkable . Adrenals: Unremarkable . Intra-abdominal aorta and IVC and other vascular structures: Within the limitations of a venous phase study, no abnormality seen. 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 Bowel loops are nondilated, with no bowel wall thickening or interloop fluid. . The appendix is normal. Mesentery, omentum and retroperitoneum: Mild fat stranding in the left upper quadrant may be related to prior study surgery. No significant lymphadenopathy. Peritoneal space: No free intraperitoneal fluid or air seen.. Kidneys: Normal size and enhancement . Delayed images show prompt and symmetric excretion of contrast from both kidneys. Contrast seen in both the ureters. No urinary extravasation. Urinary bladder: Well distended and normal. Delayed images show contrast in the bladder. Prostate and seminal vesicles: Prostatic calcifications noted. Abdominal wall and soft tissues: Unremarkable . Bony pelvis and spine: No acute abnormality . IMPRESSION: No acute intra-abdominal and pelvic abnormality is identified. 12/15/2014 [facility] Chest 1view EXAM: CHEST 1 VIEW DATE: Dec 15, 2014 12:49:00 AM INDICATION: Chest pain COMPARISON: None. TECHNIQUE: A single portable view of the chest FINDINGS: Mediastinal contours are normal. Heart is normal in size when accounting for portable technique. There are low lung volumes with vascular crowding. Lungs are clear. Costophrenic recesses are sharp. No pneumothorax identified. No acute bony abnormality. IMPRESSION: 1. No acute cardiopulmonary abnormality. 2. Low lung volumes with vascular crowdi ng. 12/15/2014 [facility] Consultation Notes No Data Provided for This Section Discharge Summaries No Data Provided for This Section History and Physicals No Data Provided for This Section Vital Signs Vital Sign Value Date Comments Source Height 167.64 cm 12/15/2014 [facility] BMI Calculated 31.05 12/15/2014 [facility] Weight 87.273 12/15/2014 [facility] Height 167.64 cm 12/15/2014 [facility] Diastolic (mm Hg) 80 12/15/2014 [facility] Respitory Rate 18 12/15/2014 [facility] Systolic (mm Hg) 131 12/15/2014 [facility] Temperature Oral (F) 98.4 F 12/15/2014 [facility] Heart Rate 63 12/15/2014 [facility] Systolic (mm Hg) 111 12/15/2014 [facility] Diastolic (mm Hg) 84 12/15/2014 [facility] Respitory Rate 18 12/15/2014 [facility] Heart Rate 66 12/15/2014 [facility] Temperature Oral (F) 97.6 F 12/15/2014 [facility] Systolic (mm Hg) 106 12/15/2014 [facility] Diastolic (mm Hg) 64 12/15/2014 [facility] Respitory Rate 18 12/15/2014 [facility] Temperature Oral (F) 96.8 F 12/15/2014 [facility] Heart Rate 60 12/15/2014 [facility] BMI Calculated 31.05 12/15/2014 [facility] Height 167.64 cm 12/15/2014 [facility] Weight 87.273 12/15/2014 [facility] Height 167.64 cm 10/18/2014 [facility] Weight 97.273 10/18/2014 [facility] BMI Calculated 34.61 10/18/2014 [facility] Systolic (mm Hg) 137 10/18/2014 [facility] Diastolic (mm Hg) 83 10/18/2014 [facility] Temperature Oral (F) 98.7 F 10/18/2014 [facility] Respitory Rate 20 10/18/2014 [facility] Heart Rate 71 10/18/2014 [facility] Heart Rate 89 10/18/2014 [facility] Respitory Rate 18 10/18/2014 [facility] Systolic (mm Hg) 134 10/18/2014 [facility] Temperature Oral (F) 98.4 F 10/18/2014 [facility] Diastolic (mm Hg) 77 10/18/2014 [facility] Diastolic (mm Hg) 92 10/18/2014 [facility] Systolic (mm Hg) 131 10/18/2014 [facility] Heart Rate 94 10/18/2014 [facility] Respitory Rate 18 10/18/2014 [facility] Temperature Oral (F) 98.6 F 10/18/2014 [facility] Height 167.64 cm 10/17/2014 [facility] Weight 97.273 10/17/2014 [facility] BMI Calculated 34.61 10/17/2014 [facility] BMI Calculated 34.61 10/16/2014 [facility] Weight 97.273 10/16/2014 [facility] Height 167.64 cm 10/16/2014 [facility] Encounters Location Location Details Encounter Type Encounter Number Reason For Visit Attending Provider ADM Date DC Date Status Source OD [id number] 729.5 - PAIN IN LIMB [facility] 10/13/2012 Active [facility] Inpatient [id number] Antelmo Cameron 10/16/2014 10/18/2014 [facility] OBS Observation Patient [id number] Antelmo Cameron 12/15/2014 12/15/2014 [facility] [id number] Antelmo Cameron 10/10/2015 10/11/2015 [facility] Procedures Procedure Code Date Perfomer Comments Source Laparoscopic sleeve gastrectomy [id number] 10/13/2014 [facility] Excision [id number] [facility] Assessment and Plan Assessment and Plan Date Source Extracted from:Title: [facility] Prog ress Note * Author: Christopher Rocha MD Date: 10/18/14 Impression and Plan The patient was seen and examined by me with the resident/TEMPERATURE REGULATOR/PA and I agree with the History/Exam documented. 44 year old male with PMH of obesity s/p ROBOTIC ASSISTED LAPAROSCOPIC SLEEVE GASTRECTOMY POD2 Neuro: Not in acute distress . Alert and oriented x3 , Pain is well controlled . Fluids and electrolytes: IVF: LR CV: RRR , SBP is within normal range . Respiratory: NL RR , GI: Diet : BCLD Intake:None BM:None : UOP:1000 Cr:0.8 Heme/ID: Afebrile , WBC:10.0 , HB:14.1 , Antibiotics: None MSK: ambulating . End: Glucose:109 , ISS:None Dispo: Home today. Ehsan Rocha Integrated Vascular Surgery PGY1 [id number] 10/18/2014 [facility] Plan of Care No Data Provided for This Section Social History Social History Date Source Social History TypeResponse Smoking Status Never smoker; Exposure to Tobacco Smoke None; Cigarette Smoking Last 365 Days No; Reg Smoking Cessation Counseling No 12/15/2014 [facility] Social History TypeResponse Smoking Status Never smoker, Exposure to Tobacco Smoke None, Cigarette Smoking Last 365 Days No, Reg Smoking Cessation Counseling No 12/15/2014 [facility] Family History No Data Provided for This Section Advance Directives No Data Provided for This Section Functional Status No Data Provided for This Section
--- OUTSIDE RECORDS SUMMARY | 2020-04-04 08:06 | XMS REPORT | Encounter Summary ---
Author Organization Unknown Address [address] [place] [id number] Phone [phone] Care Team Providers Care Wool Grader Name Role Phone Dr. Darya Kim 3 [phone] Austen Dash MD 3 [phone] Ashvin Galvin 3 [phone] Benito Gee MD 107 [phone] Reason for Visit other - see typed reason; Telemedicine V isit Instructions 1. Subconjunctival hemorrhage of right e ye Discussion Note: None recorded. Patient educational handouts: No information available. Plan of Care Reminders Provider Appointments None recorded. Lab None recorded. Referral None recorded. Procedures None recorded. Surgeries None recorded. Imaging None recorded. Medications Name Start Date Contour Test Strips Take 1 strip every day by miscell. route for 30 days. lisinopril 2.5 mg tablet Take 1 tablet every day by oral route. metformin 1,000 mg tablet Take 1 tablet twice a day by oral route. pantoprazole 40 mg tablet,delayed releas e Take 1 tablet every day by oral route for 90 days. pravastatin 10 mg tablet Take 1 tablet every day by oral route in the evening. Medications Administered None recorded. Vitals None recorded. Results Lab Results None recorded. Allergies Code Code System Name Reaction Severity Status Onset NKDA Problems Name Status Onset Date Source Paresthesia of Lower Extremity Active 04/02/2017 Body Mass Index 30+ - Obesity Active 04/10/2017 Fatigue Active 04/10/2017 Elevated Total Bilirubin Active 04/10/2017 Hypertriglyceridemia Active 05/11/2017 Procedures None recorded. Vaccine List Vaccine Type pneumococcal polysaccharide PPV23 06/14/20180.5 mL Social History Tobacco Smoking Status Never Smoker Past Encounters 02/22/2020 Subconjunctival Hemorrhage of Right Eye Diana Campos Vu, DO: [id number], [address], [place] [address], Ph. History of Present Illness Note:<div>Pt c/o a busted blood vessel in right eye 2 days ago. He had a similar incident about 1 year ago, which resolved after a few days w/o any problem. 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 Denies f/c, eye dc/itching/swelling, eye pressure, JIMÉNEZ, vision changes, any trauma to head or eyes, foreign body. Not wear eye glasses or contact lense. Use sun glasses</div><div>
</div><div>Denies recent traveling, sick contact. <div >
</div></div>I confirm that I received verbal consent from the patient for the virtual visit. Review of Systems:ROS as noted in the HPI Review of Systems Comprehensive General Adult ROS, ROS - Comprehensive General Adult ROS - POD Reported By: Patient Constitutional: Constitutional: no fever, no night sweats, no significant weight gain, no significant weight loss Eyes: Eyes: no dry eyes, no vision change, no irritation Respiratory: Respiratory: no cough, no wh eezing, no shortness of breath Neurologic: Neurologic: ; Normal gait Physical Exam General Adult Exam (male), T elemedicine/Virtual Visit Reported By: Patient Constitutional: General Appearance: healthy- appearing, well-nourished, well- developed. Level of Distress: NAD Psychiatric: Mental Status: active and al ert, normal mood, normal affect Eyes: Lids and Conjunctivae: non-i njected, no discharge, no pallor; Right nasal corner: small area of subconjunctival hemorrhage w/o evidence of foreign body, examined from pt's phone camera.Left eye: normal exam.. Corneas: grossly intact; . EOM: EOMI Lungs: Respiratory effort: no dyspn ea Skin: Inspection and palpation: ; No new lesion. No erythema
--- OUTSIDE RECORDS SUMMARY | 2020-04-04 08:06 | XMS REPORT | Encounter Summary ---
Author Organization Unknown Address [address] [place] [id number] Phone [phone] Care Team Providers Care [employer] Surveyor Name Role Phone Dr. Darya Kim 3 [phone] Austen Dash MD 3 [phone] Ashvin Galvin 3 [phone] Benito Gee MD 107 [phone] Reason for Visit Type 2 diabetes mellitus without complic ation; Hypertriglyceridemia; fever; cough / congestion Instructions 1. Acute sinusitis Zithromax Z-Osito 250 mg tablet 2. Type 2 diabetes mellitus without comp lication metformin 500 mg tablet diabetic ophthalmology referral HbA1c (hemoglobin A1c), blood microalbumin/creatinine, mass ratio, u rine testosterone, total, serum 3. Tinea corporis clotrimazole-betamethasone 1 %-0.05 % topical cream 4. Hypertensive disorder lisinopril 2.5 mg tablet CMP, serum or plasma 5. Gastroesophageal reflux disease pantoprazole 40 mg tablet,delayed rele ase CBC w/ auto diff 6. Hypertriglyceridemia pravastatin 10 mg tablet lipid panel, serum 7. Influenza vaccination declined 8. Obesity learning about healthy weight TSH, serum or plasma 9. Screening for malignant neoplasm of p rostate PSA, serum or plasma Discussion Note: None recorded. Plan of Care Reminders Provider Appointments Return to Office on or around 03/22/2020 Angie Mederos NP Lab HbA1C (Hemoglobin a1C), Blood 12/23/2019 [facility] - Laboratory CMP, Serum or Plasma 12/23/2019 [facility] - Laboratory Lipid Panel, Serum 12/23/2019 [facility] - Laboratory Microalbumin/creatinine, Mass Ratio, Urine 12/23 [facility] - Laboratory TSH, Serum or Plasma 12/23/2019 [facility] - Laboratory PSA, Serum or Plasma 12/23/2019 [facility] - Laboratory CBC W/ Auto Diff 12/23/2019 [facility] - Laboratory Testosterone, Total, Serum 12/23/2019 [facility] Referral Diabetic Ophthalmology Referral 12/23/2019 Chi Gross MD Procedures None recorded. Surgeries None recorded. Imaging None recorded. Medications Name Start Date clotrimazole-betamethasone 1 %-0.05 % to pical cream APPLY TO THE AFFECTED AND SURROUNDING AREAS OF SKIN BY TOPICAL ROUTE 2 TIMES PER DAY IN THE MORNING AND EVENING FOR 2 WEEKS Contour Test Strips Take 1 strip every day by miscell. route for 30 days. lisinopril 2.5 mg tablet Take 1 tablet every day by oral route. metformin 500 mg tablet TAKE 1 TABLET BY MOUTH TWICE DAILY WITH FOOD pantoprazole 40 mg tablet,delayed releas e Take 1 tablet every day by oral route for 90 days. pravastatin 10 mg tablet Take 1 tablet every day by oral route in the evening. Zithromax Z-Osito 250 mg tablet TAKE 2 TABLETS (500 MG) BY ORAL ROUTE ONCE DAILY FOR 1 DAY THEN 1 TABLET (250 MG) BY ORAL ROUTE ONCE DAILY FOR 4 DAYS Medications Administered None recorded. Vitals Height Weight BMI Blood Pressure 5 ft 6 in 196 lbs 31.6 kg/m2 128/84 mm[Hg] Results Lab Results None recorded. Allergies Code Code System Name Reaction Severity Status Onset NKDA Problems Name Status Onset Date Source Paresthesia of Lower Extremity Active 04/02/2017 History of Diabetes Mellitus Active 04/02/2017 Body Mass Index 30+ - Obesity Active 04/10/2017 Fatigue Active 04/10/2017 Elevated Total Bilirubin Active 04/10/2017 Type 2 Diabetes Mellitus without Complication Active Hypertriglyceridemia Active 05/11/2017 Procedures None recorded. Vaccine List Vaccine Type pneumococcal polysaccharide PPV23 06/14/20180.5 mL Social History Tobacco Smoking Status Never Smoker Past Encounters 12/23/2019 Acute Sinusitis; Type 2 Diabetes Mellitus without Complication; Tinea Corporis; Hypertensive Disorder; Gastroesophageal Reflux Disease; Hypertriglyceridemia; Influenza Vaccination Declined; Obesity; Screening for Malignant Neoplasm of Prostate Lachelle Mederos, [employer] BU[employer]DER: [address] [place] [address], Ph. History of Present Illness Note:<div>Patient here for follow up visit, last seen 01/2019. Has been out of his routine medication x 2 months. </div><div>
</div><div>1. T2DM
- last A1c: 7.7 on 02/17/2019
- current med(s): metformin
- medication compliance: daily
- adverse reactions: no
- home bg range: 130-240
- diet and exercise: yes
- Denies polyuria, polydipsia, hypoglycemic episodes, acute visual changes
- Prescribed ACEi & Statin: yes
- Eye Exam within last year: no
</div><div>
</div><div>2. HLD
</div><div> current meds: pravastatin
medication compliance: yes</div><div>adverse reactions: denies </div><div> diet and exercise: none</div><div>Diabetic: yes

3. Nasal congestion, sinus pressure with cough x 2 weeks. had a fever initially that resolved. Was seen at [facility] and was started meds ( medrol pack and tessalon) without much improvement. denies cp/ dyspnea. </div><div>
</div>< div>4. Hx of fungal rash to the trunk that flares up with moisture build up and humidity. Needs refill on topical cream. </div><div>
</div> Review of Systems Comprehensive Adult Problem ROS Reported By: Patient Constitutional: Constitutional: no significa nt weight change, no fatigue Eyes: Eyes: ; denies vision distur bances ENMT: ENMT: no ear pain, no sore t hroat, sinus pressure, congestion Cardiovascular: Cardiovascular: no chest patricia n, normal heart rate; no pedal edema Respiratory: Respiratory: no wheezing, no chest tightness, normal respiration, cough Gastrointestinal: GI: no abdominal pain, no vo miting, no diarrhea, no constipation Musculoskeletal: Musculoskeletal: no soft tis joana swelling, no joint swelling Skin: Skin: no rash Neurological symptoms: Neuro: no numbness, no tingl ing, no headache, no dizziness Psychiatric: Psych: no depression, no anx iety Physical Exam General Adult Exam (Female) Reported By: Patient Constitutional: General Appearance: healthy- appearing, well-developed, obese. Level of Distress: NAD. Ambulation: ambulating normally Psychiatric: Mental Status: active and al ert, normal mood, normal affect. Orientation: to time, to place, to person Eyes: Pupils: PERRLA. EOM: EOMI. S clerae: non-icteric ENMT: Ears: EACs clear, TMs clear. Nose: sinus tenderness, nasal discharge--rhinorrhea, post nasal drip. Oropharynx: moist mucous membranes, no erythema, no exudates, tonsils not enlarged Neck: Neck: supple. Lymph Nodes: n o cervical LAD, no supraclavicular LAD Lungs: Respiratory effort: no dyspn ea. Auscultation: breath sounds normal, good air movement, no wheezing, no rales/crackles, no rhonchi Cardiovascular: Apical Impulse: not displace d. Heart Auscultation: RRR, normal S1, normal S2 Abdomen: Bowel Sounds: normal. Inspec tion and Palpation: soft, non-distended, no tenderness, no guarding, no rebound tenderness, no masses, no CVA tenderness. Liver: non-tender, no hepatomegaly. Spleen: non-tender, no splenomegaly Musculoskeletal:: Joints, Bones, and Muscles: normal movement of all extremities. Extremities: no edema Neurologic: Gait and Station: normal gai t, normal station Skin: Inspection and palpation: no rash
--- OUTSIDE RECORDS SUMMARY | 2020-04-04 08:06 | XMS REPORT ---
Author Author [facility] t Organization [facility] Address [address] [place] [address] Phone Unavailable Care Team Providers Care Life Skills Worker Name Role Phone Daniel Galvin MD PCP [phone] Christi Flor MA Attphys Unavailable Daniel Galvin MD Attphys [phone] Christina Cameron Attphys Christina Cameron Admphys Payers Payer Name Policy Type Policy Number Effective Date Expiration Date Smith feng UHCUMR-TML MULTISTATE [id number]/11/2017-PresentPPO xxxxxxxxxxxx 2018 00:00:00 Timothy Jacinto Problems Condition Name Condition Details Condition Category Status Onset Date Resolution Date Last Treatment Date Treating Clinician Comments Source S/P gastric surgery S/P gastric surgery Disease Active 2019-06-20 00:00 :00 Overview: Gastric sleeve Timothy Jacinto Diabetes mellitus type II, non insulin dependent Diabe juli mellitus type II, non insulin dependent Disease Active 2019-06-20 00:00:00 Timothy Jacinto Hyperlipidemia LDL goal <70 Hyperlipidemia LDL goal <70 Disease Active 2019-06-20 00:00:00 Timothy Jacinto GERD with esophagitis GERD with esophagitis Disease Active 201 07-30-29 00:00:00 Timothy Peña t Hypertriglyceridemia Hypertriglyceridemia Problem Active 00:00:00 [facility] Pract ice Body mass index 30+ - obesity Body Mass Index 30+ - Obesity Problem Active 2017-04-10 00:00:00 [facility] Fatigue Fatigue Problem Active 2017-04-10 00:00:00 [facility] Elevated total bilirubin Elevated Total Bilirubin Problem Acti ve 2017-04-10 00:00:00 [facility] Paresthesia of lower extremity Paresthesia of Lower Extremity Probl em Active 2017-04-02 00:00:00 [facility] Allergies, Adverse Reactions, Alerts This patient has no known allergies or adverse reactions. Family History Family Member Diagnosis Comments Start Date Stop Date Source Natural father Cancer [facility] Natural father Diabetes type II Priyank Jacinto Natural father Hyperlipidemia Priyankto n Judaism Natural father Hypertension Timothy Cavanaughist Natural father Kidney disease [place] Natural mother Obesity [facility] Social History Social Habit Start Date Stop Date Quantity Comments Source Sex Assigned At Avi vizcarra Judaism Alcohol intake 2019-06-20 00:00:00 2019-06-20 00:00:00 Current drinker of alcohol (finding) Timothy Jacinto Smoking Status Start Date Stop Date Source Never smoker Timothy holley Medications Ordered Medication Name Filled Medication Name Start Date Stop Da te Current Medication? Ordering Clinician Indication Dosage Frequency Signature (SIG) Comments Components Source blood sugar diagnostic strips (CONTOUR TEST STRIPS) strip te st strips 2019-06-27 00:00:00 Yes [id number] Test blood sugar BID for dx E11.9 Timothy Jacinto metFORMIN XR (GLUCOPHAGE-XR) 500 mg 24 hr tablet 2019-06-27 00:00:00 2020-06-27 04:59:00 No [id number] 500mg Q.5D Take 1 tablet (500 mg total) by mouth 2 (two) times a day after meals. Clem Jacinto metFORMIN (GLUCOPHAGE) 500 mg tablet 2019-06-21 00:00: 00 2019-06-27 00:00:00 No [id number] 1000mg Q.5D Take 2 tablets (1,000 mg total) by mouth 2 (two) times a day with meals for 180 days. Timothy Corey etholivia atorvastatin (LIPITOR) 10 MG tablet 2019-06-20 13:36:11 Yes 10mg QD Take 10 mg by mouth daily. Timothy Jacinto pantoprazole (PROTONIX) 40 MG EC tablet 2019-06-20 13:36:11 Yes 40mg QD Take 40 mg by mouth daily. Timothy vieira lisinopril (PRINIVIL,ZESTRIL) 2.5 mg tablet 2019-06-20 13:36:11 Yes 2.5mg QD Take 2.5 mg by mouth daily. Timothy Jacinto ipratropium (ATROVENT) 0.03 % nasal spray 06-20 00:00:00 2019-06-28 04:59:00 No [id number] 2{spray} Q.[id number] 2 sprays into each nostril 3 (three) times a day for 7 days. Timothy Jacinto amoxicillin-pot clavulanate (AUGMENTIN) 875-125 mg per table t 2019-06-20 00:00:00 2019-06-26 04:59:00 No [id number] 1{tbl} Q.5D Take 1 tablet by mouth 2 (two) times a day for 5 days. Take if fever, worsening, or pus like drainage Timothy Jacinto metFORMIN (GLUCOPHAGE) 500 mg tablet 2019 00:00: 00 2019-06-21 00:00:00 No 1{tbl} Q.5D Take 1 tablet by mouth 2 (two) times a d ay with meals. Timothy Jacinto traMADol (ULTRAM) 50 mg tablet 2019-05-09 00:00:00 Yes TAKE 1 TABLET BY MOUTH EVERY 4-6 HOURS NEEDED Ryder Jacinto Contour Test Strips Take 1 strip every day by miscell. route for 30 days. Contour Test Strips Take 1 strip every day by miscell. route for 30 days. No Contour Test St rips Take 1 strip every day by miscell. route for 30 days. [facility] ice lisinopril 2.5 mg tablet Take 1 tablet every day by or al route. lisinopril 2.5 mg tablet Take 1 tablet every day by oral route. No 1 Q1D lisinopril 2.5 mg tablet Take 1 tablet every day by oral route. [facility] metformin 1,000 mg tablet Take 1 tablet twice a day by oral route. metformin 1,000 mg tablet Take 1 tablet twice a day by oral route. No metformin 1,000 mg tablet Take 1 tablet twice a day by oral route. [facility] pantoprazole 40 mg tablet,delayed releas e Take 1 tablet every day by oral route for 90 days. pantoprazole 40 mg tablet,delayed releas e Take 1 tablet every day by oral route for 90 days. No 1 Q1D pantoprazole 40 mg tablet,delayed release Take 1 tablet every day by oral route for 90 days. [facility] pravastatin 10 mg tablet Take 1 tablet every day by or al route in the evening. pravastatin 10 mg tablet Take 1 tablet every day by oral route in the evening. No 1 Q1D pravastati n 10 mg tablet Take 1 tablet every day by oral route in the evening. [facility] Xigduo XR 5 mg-1,000 mg tablet,extended release Take 1 tablet twice a day by oral route. Xigduo XR 5 mg-1,000 mg tablet,extended release Take 1 tablet twice a day by oral route. No 1 BID Xig duo XR 5 mg-1,000 mg tablet,extended release Take 1 tablet twice a day by oral route. [facility] Immunizations Ordered Immunization Name Filled Immunization Name Date Status Comments Source pneumococcal polysaccharide PPV23 pneumococcal polysaccharid e PPV23 2018-06-14 16:45:00 Completed [facility] Vital Signs Vital Name Observation Time Observation Value Comments Source BP Diastolic 2019-12-23 00:00:00 84 mm[Hg] [facility] Height 2019-12-23 00:00:00 66 [in_i] [facility] BMI (Body Mass Index) 2019-12-23 00:00:00 31.6 kg/m2 [facility] BP Systolic 2019-12-23 00:00:00 128 mm[Hg] [facility] Body Weight 2019-12-23 00:00:00 196 [lb_av] [facility] BP Diastolic 2019-02-17 00:00:00 88 mm[Hg] [facility] Height 2019-02-17 00:00:00 66 [in_i] [facility] BMI (Body Mass Index) 2019-02-17 00:00:00 30 kg/m2 [facility] BP Systolic 2019-02-17 00:00:00 136 mm[Hg] [facility] Body Weight 2019-02-17 00:00:00 186 [lb_av] [facility] Systolic blood pressure 2019-06-20 13:11:00 128 mm[Hg] Timothy Jacinto Diastolic blood pressure 2019-06-20 13:11:00 82 mm[Hg] Timothy Jacinto Heart rate 2019-06-20 13:11:00 77 /min Timothy Jacinto Body height 2019-06-20 13:11:00 167.6 cm Timothy Jacinto Body weight 2019-06-20 13:11:00 83.915 kg Timothy Jacinto BMI 2019-06-20 13:11:00 29.86 kg/m2 Timothy Jacinto Procedures Procedure Date / Time Performed Performing Clinician Arlyn oshea HEMOGLOBIN A1C 2019-06-20 13:57:00 Ashvin Galvin HDL CHOLESTEROL 2019-06-20 13:57:00 Ashvin Galvin COMPREHENSIVE METABOLIC PANEL 2019-06-20 13:57:00 Anibal Galvin CHOLESTEROL 2019-06-20 13:57:00 Ashvin Galvin CBC WITH PLATELET AND DIFFERENTIAL 2019-06-20 13:57:00 Ashvin Perkins LDL CHOLESTEROL, DIRECT 2019-06-20 13:57:00 Ashvin Galvin URINALYSIS, COMPLETE, WITH REFLEX TO CULTURE 2019-06-20 13:5 7:00 Ashvin Galvin MICROALBUMIN / CREATININE URINE RATIO 2019-06-20 13:57:00 Ashvin Benitez MICROSCOPIC EXAMINATION 2019-06-20 13:57:00 Ashvin Galvin Plan of Care Planned Activity Planned Date Details Comments Source Future Scheduled Test [code = ] Future Scheduled Test [code = ] Future Scheduled Test [code = ] Future Scheduled Test [code = ] Future Appointment 2020-06-12 00:00:00 Nikko Sanchez, [address]; [address], [place] [address] [facility] Encounters Start Date/Time End Date/Time Encounter Type Admission Type Attendi [facility] Care Department Encounter ID Source 2020-03-13 00:00:00 2020-03-13 00:00:00 Nikko Sanchez , DO: [address], [address], [place] [address], Ph. [facility] - [facility] - CARLOS_AVI_Boris (SYMONEG) [id number] [facility] 2020-03-07 00:00:00 2020-03-07 00:00:00 Lachelle Mederos, RELAY REPAIRER : [address], [address], [place] [address], Ph. [facility] - [facility] ([place]) [id number] [facility] 2020-02-22 00:00:00 2020-02-22 00:00:00 Diana Bob, DO: [address], [address], [place] [address], Ph. [facility] - [facility] ([place]) [id number] [facility] e 2019-12-23 00:00:00 2019-12-23 00:00:00 Lachelle Mederos, RELAY REPAIRER : [address] [place] [address], Ph. [facility] - [facility] [id number] [facility] 2019-02-17 00:00:00 2019-02-17 00:00:00 Jacques Gomez MD: [address] [place] [address], Ph. [facility] [place] [id number] [facility] 2015-10-10 10:51:00 2015-10-10 23:59:00 Outpatient Lito Cameron MHHSOIB MHHSOIB [id number] [facility] Outpatient Imaging - [place] 2014-12-15 00:02:00 2014-12-15 15:07:00 Outpatient Lito Cameron MHIEALT [id number] 2014-10-16 13:19:00 2014-10-18 12:24:00 Outpatient Lito Cameron MHIEALT MHIEALT [id number] Results Test Description Test Time Test Comments Results Result Comments Source Microalbumin/Creatinine [Mass Ratio] in Urine 2020-03-08 15: 38:00 Test Item microalbumin random urine (test code = microalbumin random urine) 2 8 ug/mL creatinine random urine (test code = creatinine random urine ) 368.1 mg/dL 20.0-370.0 microalbumin/creatinine (random urine) r atio calculated (test code = microalbumin/creatinine (random urine) ratio calculated) 8 mcg/mg creat [facility] 1999 [facility] - Serum or Plasma 2020-03-08 15:04:00* Test Item Value Reference Range Interpretation Comments ALT (test code = ALT) 19 U/L 0-55 AST (test code = AST) 19 U/L 5-34 BUN (test code = BUN) 20.8 mg/dL 8.9-25.0 alk phos (test code = alk phos) 72 unit/L 40-150 glucose (test code = glucose) 152 mg/dL 70-99 H albumin (test code = albumin) 4.3 g/dL 3.4-5.1 creatinine (test code = creatinine) 0.82 mg/dL 0.72-1.25 eGFR non- (test code = eGFR non-) > 60 total bilirubin (test code = total bilirubin) 1.6 mg/dL 0.2-1.2 H eGFR - (test code = eGFR - ) >60 sodium (test code = sodium) 138 mEq/L 135-145 potassium (test code = potassium) 4.4 mEq/L 3.5-5.3 chloride (test code = chloride) 101 mmol/L 98-110 total protein (test code = total protein) 7.8 g/dL 6.1-8.2 calcium (test code = calcium) 8.9 mg/dL 8.6-10.4 CO2 (test code = CO2) 27.5 mmol/L 20.0-32.0 anion gap (test code = anion gap) 10 calc [facility] panel - Serum or [id number] 15:04:00* Test Item Value Reference Range Interpretation Comments HDL (test code = HDL) 47 mg/dL triglyceride (test code = triglyceride) 117 mg/dL <150 VLDL (calculated) (test code = VLDL (calculated)) 23 mg/dL cholesterol/HDL ratio (test code = cholesterol/HDL ratio) 3.1 mg/dL non-HDL cholesterol (calculated) (test code = non-HDL cholesterol (calculated)) 100 mg/dL <160 cholesterol (test code = cholesterol) 147 mg/dL <200 Cholesterol in LDL [Mass/volume] in Serum or Plasma (t est code = 2089-1) 77 mg/dL <130 [facility] HospitalThy[facility]ropin [Units/volume] in Serum or [id number] 15:04:00* Test Item Value Reference Range Interpretation Comments TSH (test code = TSH) 1.677 uIU/mL 0.350-4.940 [facility], serum or [id number] 15:04:00* Test Item Value Reference Range Interpretation Comments PSA, total (test code = PSA, total) 0.46 NG/mL <4.00 [facility] [Mass/volume] in Serum or [id number] 15:04:00* Test Item Value Reference Range Interpretation Comments testosterone, total (test code = testosterone, total) 330.65 NG/dL 240.24-870.68 [facility] HospitalHem[facility] A1c/Hemoglobin.total in [id number] 14:44:00* Test Item Value Reference Range Interpretation Comments Hemoglobin A1c/Hemoglobin.total in Blood (test code = 4548-4) 8.3 % 1.0-5.7 H average blood glucose (calculated) (test code = average blood glucose (calculated)) 192 mg/dL [facility] W Auto Differential panel - [id number] 14:31:00 * Test Item Value Reference Range Interpretation Comments WBC (test code = WBC) 5.24 x10*3/?L 4.23-9.07 RBC (test code = RBC) 4.92 10*12/L 4.63-6.08 hemoglobin (test code = hemoglobin) 12.80 g/dL 13.70-17.50 L hematocrit (test code = hematocrit) 39.4 % 40.1-51.0 L MCV (test code = MCV) 80.1 fL 80.0-100.0 MCH (test code = MCH) 26.0 pg 25.7-32.2 MCHC (test code = MCHC) 32.5 g/dL 32.3-36.5 RDW-SD (test code = RDW-SD) 42.5 fL 35.1-43.9 platelet count (test code = platelet count) 320.0 k/uL 163.0-337. 0 MPV (test code = MPV) 10.8 fL 7.5-11.5 neut% (test code = neut%) 49.0 % 34.0-67.9 lymph% (test code = lymph%) 36.1 % 21.8-53.1 mon% (test code = mon%) 12.6 % 5.3-12.2 H eos% (test code = eos%) 1.0 % 0.8-7.0 baso% (test code = baso%) 1.3 % 0.2-1.2 H neut# (test code = neut#) 2.6 x10*3/?L 1.8-5.4 lymph# (test code = lymph#) 1.9 x10*3/?L 1.3-3.6 mon# (test code = mon#) 0.7 x10*3/?L 0.3-0.8 eos# (test code = eos#) 0.05 x10*3/?L 0.04-0.54 baso# (test code = baso#) 0.07 x10*3/?L 0.01-0.08 [facility] / creatinine urine [id number] 21:09:00 * Test Item Value Reference Range Interpretation Comments Creatinine, urine, random (test code = 2161-8) 207.1 mg/dL Not Est ab. Albumin, urine (test code = 68649-8) 14.6 ug/mL Not Estab. Microalbumin/creatinine ratio (test code = 9318-7) 7.0 0.0 - 30.0 mg/g creat Normal: 0.0 - 30.0 Albuminuria: 31.0 - 300.0 Clinical albuminuria: >300.0 GENE (test code = GENE) Performed at: [facility] [id number] Director: Leonardo Plaza MD, Phone: [phone] [facility] [id number] 21:09:00* Test Item Value Reference Range Interpretation Comments WBC, UA (test code = 5821-4) 0-5 0- 5 /hpf RBC, UA (test code = 81582-9) 0-2 0- 2 /hpf Epithelial cells (non renal) (test code = 5787-7) 0-10 0- 1 0 /hpf Crystals, urine (test code = 5783-6) Present N/A A Crystal type (test code = 5782-8) Calcium Oxalate N/A Mucus, UA (test code = 8247-9) Present Not Estab. Bacteria, UA (test code = 5769-5) Few None seen/Few GENE (test code = GENE) Performed at: [facility] [id number] Director: Leonardo Plaza MD, Phone: [phone] Lab Interpretation (test code = 78294-8) Abnormal [facility], COMPLETE, WITH REFLEX TO [id number] 21:09:00 * Test Item Value Reference Range Interpretation Comments Specific gravity, urine (test code = 2965-2) >=1.030 1.005-1.0 30 A pH, urine (test code = 5803-2) 5.5 5.0-7.5 Color, UA (test code = 5778-6) Yellow Yellow Appearance (test code = 5767-9) Clear Clear WBC esterase, urine (test code = 5799-2) Negative Negative Protein, UA (test code = 55578-0) Negative Negative/Trace Glucose, urine (test code = 2349-9) 2+ Negative A Ketones, UA (test code = 2514-8) Trace Negative A Occult blood, urine (test code = 5794-3) Negative Negative Bilirubin, UA (test code = 5770-3) Negative Negative Urobilinogen, UA (test code = 05002-0) 1.0 mg/dL 0.2-1 Nitrite, UA (test code = 5802-4) Negative Negative Microscopic examination (test code = 91726-3) See below: Microscopic was indicated and was performed. Urinalysis reflex (test code = 2386) Comment This specimen will not reflex to a Urine Culture. GENE (test code = GENE) Performed at: [address] [place] [id number] Director: Leonardo Plaza MD, Phone: [phone] Lab Interpretation (test code = 47738-0) Abnormal [facility] [id number] 09:06:00* Test Item Value Reference Range Interpretation Comments Hemoglobin A1C (test code = 4548-4) 8.3 % 4.8-5.6 H Prediabetes: 5.7 - 6.4 Diabetes: >6.4 Glycemic control for adults with diabetes: <7.0 GENE (test code = GENE) Performed at: [address] [place] [id number] Director: Leonardo Plaza MD, Phone: [phone] Lab Interpretation (test code = 91357-4) Abnormal [facility] [id number] 08:06:00* Test Item Value Reference Range Interpretation Comments Cholesterol (test code = 2093-3) 138 mg/dL 100-199 GENE (test code = GENE) Performed at: [address] [place] [id number] Director: Leonardo Plaza MD, Phone: [phone] [facility]HDL [id number] 08:06:00* Test Item Value Reference Range Interpretation Comments HDL cholesterol (test code = 2085-9) 48 mg/dL >39 GENE (test code = GENE) Performed at: [address] [place] [address] [id number] Director: Leonardo Plaza MD, Phone: [phone] [facility], [id number] 08:06:00* Test Item Value Reference Range Interpretation Comments LDL cholesterol (test code = 20970-1) 75 mg/dL 0-99 GENE (test code = GENE) Performed at: [address] [place] [address] [id number] Director: Leonardo Plaza MD, Phone: [phone] [facility] with platelet and [id number] 08:06:00* Test Item Value Reference Range Interpretation Comments WBC (test code = 6690-2) 4.5 3.4- 10.8 x10E3/uL RBC (test code = 789-8) 5.07 4.14- 5.80 x10E6/uL HGB (test code = 718-7) 12.4 g/dL 13-17.7 L HCT (test code = 4544-3) 37.4 % 37.5-51 L MCV (test code = 787-2) 74 fL 79-97 L MCH (test code = 785-6) 24.5 pg 26.6-33 L MCHC (test code = 786-4) 33.2 g/dL 31.5-35.7 RDW (test code = 788-0) 17.0 % 12.3-15.4 H Platelet count (test code = 777-3) 275 150- 450 x10E3/uL Neutrophils (test code = 770-8) 50 % Not Estab. Lymphocytes (test code = 736-9) 39 % Not Estab. Monocytes (test code = 5905-5) 9 % Not Estab. Eosinophils (test code = 713-8) 1 % Not Estab. Basophils (test code = 706-2) 1 % Not Estab. Neutrophils, absolute (test code = 751-8) 2.2 1.4- 7.0 x10 E3/uL Lymphocytes, absolute (test code = 731-0) 1.8 0.7- 3.1 x10 E3/uL Monocytes, absolute (test code = 742-7) 0.4 0.1- 0.9 x10E3 /uL Eosinophils, absolute (test code = 711-2) 0.0 0.0- 0.4 x10 E3/uL Basophils, absolute (test code = 704-7) 0.0 0.0- 0.2 x10E3 /uL Immature granulocytes (test code = 46958-4) 0 % Not Estab. Immature grans (abs) (test code = 39480-3) 0.0 0.0- 0.1 x1 0E3/uL GENE (test code = GENE) Performed at: [facility] [id number] Director: Leonardo Plaza MD, Phone: [phone] Lab Interpretation (test code = 21803-3) Abnormal [facility] [id number] 07:06:00* Test Item Value Reference Range Interpretation Comments Glucose (test code = 2345-7) 145 mg/dL 65-99 H BUN (test code = 3094-0) 19 mg/dL 6-24 Creatinine (test code = 2160-0) 0.74 mg/dL 0.76-1.27 L EGFR Non-Afr. Belgian (test code = 2775) 108 mL/min/1.73 >59 EGFR (test code = 2774) 125 mL/min/1.73 >59 BUN/creatinine ratio (test code = 3097-3) 26 9-20 H Sodium (test code = 2951-2) 140 mmol/L 134-144 Potassium (test code = 2823-3) 4.2 mmol/L 3.5-5.2 Chloride (test code = 2075-0) 101 mmol/L 96-106 CO2 (test code = 2027-9) 24 mmol/L 20-29 Calcium (test code = 96306-6) 8.6 mg/dL 8.7-10.2 L Protein (test code = 2885-2) 7.2 g/dL 6-8.5 Albumin, S (test code = 1751-7) 4.3 g/dL 3.5-5.5 Globulin, total (test code = 20779-2) 2.9 g/dL 1.5-4.5 Albumin/globulin ratio (test code = 1759-0) 1.5 1.2-2.2 Total bilirubin (test code = 1975-2) 0.5 mg/dL 0-1.2 Alkaline phosphatase (test code = 6768-6) 82 39- 117 IU/L AST (test code = 1920-8) 16 0- 40 IU/L ALT (test code = 1742-6) 17 0- 44 IU/L GENE (test code = GENE) Performed at: 01 - [facility] [id number] Director: Leonardo Plaza MD, Phone: [phone] Lab Interpretation (test code = 83757-5) Abnormal Timothy Jacinto
--- OUTSIDE RECORDS SUMMARY | 2020-04-04 08:06 | XMS REPORT | Encounter Summary ---
Author Organization Unknown Address [address] [place] [address] Phone [phone] Care Team Providers Care Napkin Band Wrapper Name Role Phone Dr. Austen Kruse 3 [phone] Austen Dash MD 3 [phone] Benito Gee MD 107 [phone] Reason for Visit Type 2 diabetes mellitus without complic ation; Hypertriglyceridemia; Left leg problem; hypertension Instructions 1. Body mass index 30+ - obesity body mass index: care instructions learning about healthy weight 2. Type 2 diabetes mellitus without comp lication metformin 500 mg tablet HbA1c (hemoglobin A1c), blood CMP, serum or plasma lipid panel, serum 3. Gastroesophageal reflux disease pantoprazole 40 mg tablet,delayed rele ase 4. Hypertriglyceridemia pravastatin 10 mg tablet 5. Hypertensive disorder lisinopril 2.5 mg tablet 6. Hamstring injury naproxen 500 mg tablet Discussion Note: None recorded. Plan of Care Patient Instructions continue all meds ,not to participate in athletic activity 3 weeks Reminders Provider Appointments Return to Office on or around 05/20/2019 Jacques Gomez MD Lab HbA1C (Hemoglobin a1C), Blood 02/17/2019 [facility] Laboratory CMP, Serum or Plasma 02/17/2019 [facility] Laboratory Lipid Panel, Serum 02/17/2019 [facility] Laboratory Referral None recorded. Procedures None recorded. Surgeries [...] by oral route. metformin 500 mg tablet Take 1 tablet every day by oral route with meals for 90 days. naproxen 500 mg tablet Take 1 tablet twice a day by oral route. pantoprazole 40 mg tablet,delayed releas e Take 1 tablet every day by oral route for 90 days. pravastatin 10 mg tablet Take 1 tablet every day by oral route in the evening. Medications Administered None recorded. Vitals Height Weight BMI Blood Pressure 5 ft 6 in 186 lbs 30 kg/m2 136/88 mm[Hg] Lab Results None recorded. Allergies Code Code [...] pneumococcal polysaccharide PPV23 06/14/20180.5 mL Social History Smoking Status Never Smoker Past Encounters 02/17/2019 Body Mass Index 30+ - Obesity; Type 2 Diabetes Mellitus without Complication; Gastroesophageal Reflux Disease; Hypertriglyceridemia; Hypertensive Disorder; Hamstring Injury Jacques Gomez MD: [address] [place] [address], Ph. History of Present Illness Note:f/u chronic conditions compliant meds/diet /exercise
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 Physical Exam Musculoskeletal and Joint Ex am, Cardiology Exam Reported By: Patient Musculoskeletal System: Left Knee: tenderness; pain tenderness mid medial post thigh -hamstring muscle Constitutional: General Appearance: well-dev eloped, appears stated age. Level of Distress: comfortable Psychiatric: Mental Status: alert, normal affect. Orientation: oriented to time, place, and person. Insight: good judgment Eyes: Lids and Conjunctivae: non-i njected, anicteric, no discharge, no pallor, no arcus senilis, no xanthelasma. Pupils: PERRLA Neck: Neck: supple, trachea midlin e, no masses, FROM. Carotid Arteries: bilateral normal upstroke, no bruits, no thrills. Cervical Lymph Nodes: non tender, not enlarged. Thyroid: not enlarged, non tender, no nodules Lungs: Respiratory Effort: unlabore d. Chest Exam: normal curvature, no thoracic deformity, no chest wall tenderness. Percussion: resonant. Auscultation: clear, no wheezing, no rales, no rhonchi Cardiovascular: Precordial Exam: non displac ed focal PMI, no heaves, no precordial thrills. Rate And Rhythm: regular. Heart Sounds: normal S1, physiologically split S2, no rub, no gallop, no click. Systolic Murmur: not heard. Diastolic Murmur: not heard. Extremities: no cyanosis, no edema, no peripheral signs of emboli Skin: Inspection and Palpation: wa rm and dry. Nails: no clubbing
--- OUTSIDE RECORDS SUMMARY | 2020-04-04 08:06 | XMS REPORT | Encounter Summary ---
Author Organization Unknown Address [address] [place] [address] Phone [phone] Care Team Providers Care Sports Activities Foul Judge Name Role Phone Dr. Austen Kruse 3 [phone] Austen Dash MD 3 [phone] Benito Gee MD 107 [phone] Reason for Visit Type 2 diabetes mellitus [...] lisinopril 2.5 mg tablet 6. Hamstring injury Discussion Note: None recorded. Plan of Care Patient Instructions continue all meds ,not to participate in athletic activity 3 weeks Reminders Provider Appointments Return to Office on or around 05/20/2019 Jacques Gomez MD Lab HbA1C (Hemoglobin a1C), Blood 02/17/[address] [facility] Laboratory CMP, Serum or Plasma 02/17/2019 [facility] Laboratory Lipid Panel, Serum 02/17/2019 [facility] Laboratory Referral None recorded. Procedures None recorded. [...] oral route with meals for 90 days. pantoprazole 40 mg tablet,delayed [...] Hypertensive Disorder; Hamstring Injury Jacques Gomez MD: [address] [place] [address], Ph. History of Present Illness Note:f/u chronic conditions compliant meds/diet /exercise
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
--- OUTSIDE RECORDS SUMMARY | 2020-04-04 08:06 | XMS REPORT | Encounter Summary ---
Author Organization Unknown Address [address] [place] [address] Phone [phone] Care Team Providers Care Marketing Operations Assistant Name Role Phone Dr. Darya Kim 3 [phone] Austen Dash MD 3 [phone] Ashvin Galvin 3 [phone] Benito Gee MD 107 [phone] Reason for Visit Hypertriglyceridemia; hypertension; lab follow-up; Telemedicine Visit Instructions 1. Hyperglycemia due to type 2 diabetes mellitus lisinopril 2.5 mg tablet diabetic ophthalmology referral Xigduo XR 5 mg-1,000 mg tablet,extende d release 2. Gastroesophageal reflux disease pantoprazole 40 mg tablet,delayed rele ase 3. Dyslipidemia pravastatin 10 mg tablet 4. Anemia gastroenterology referral Discussion Note: None recorded. Patient educational handouts: No information available. Plan of Care Reminders Provider Appointments Return to Office on or around 06/12/2020 Nikko Sanchez DO Lab None recorded. Referral Diabetic Ophthalmology Referral 03/13/2020 Gastroenterology Referral 03/13/2020 Beatris Gee MD Procedures None recorded. Surgeries None recorded. [...] day by oral route in the evening. Xigduo XR 5 mg-1,000 mg tablet,extended release Take 1 tablet twice a day by oral route. Medications Administered None recorded. Vitals None recorded. Results Lab Results Date Name Specimen Result Interpretation Description Value Range Status Address 03/07/2020 CBC W/ Auto Diff Wbc 5.24 x10*3/L 4.2 3-9.07 x10*3/L Final [facility] - Laboratory: [address] [place] Rbc 4.92 10*12/L 4.63-6.08 10*12/L Final [facility] - Laboratory: [address] [place] Low Hemoglobin 12.80 g/dL 13.70-17.50 g/ dL Final [facility] - Laboratory: [address] [place] Low Hematocrit 39.4 % 40.1-51.0 % Final [facility] - Laboratory: [address] [place] Mcv 80.1 fL 80.0-100.0 fL Final [facility] Medical - Laboratory: [address] [place] Mch 26.0 pg 25.7-32.2 pg Final [facility] Medical - Laboratory: [address] [place] Mchc 32.5 g/dL 32.3-36.5 g/dL Final [facility] - Laboratory: [address] [place] RDW-SD 42.5 fL 35.1-43.9 fL Final [facility] Medical - Laboratory: [address] [place] Platelet Count 320.0 k/uL 163.0-337. 0 k/uL Final [facility] - Laboratory: [address] [place] Mpv 10.8 fL 7.5-11.5 fL Final [facility] Medical - Laboratory: [address] [place] Neut% 49.0 % 34.0-67.9 % Final [facility] Medical - Laboratory: [address] [place] Lymph% 36.1 % 21.8-53.1 % Final [facility] Medical - Laboratory: [address] [place] High Mon% 12.6 % 5.3-12.2 % Final [facility] Medical - Laboratory: [address] [place] Eos% 1.0 % 0.8-7.0 % Final [facility] - Laboratory: [address] [place] High Baso% 1.3 % 0.2-1.2 % Final [facility] Medical - Laboratory: [address] [place] Neut# 2.6 x10*3/L 1.8-5.4 x10*3/L Final [facility] - Laboratory: [address] [place] Lymph# 1.9 x10*3/L 1.3-3.6 x10*3/L Final [facility] - Laboratory: [address] [place] [address] Mon# 0.7 x10*3/L 0.3-0.8 x10*3/L [facility]: [address] [facility] Eos# 0.05 x10*3/L 0.04-0.54 x10*3/ L Final [facility] - Laboratory: [address] [place] [address] Baso# 0.07 x10*3/L 0.01-0.08 x10*3/ L Final [facility] - Laboratory: [address] [facility] 03/07/2020 CMP, Serum or Plasma Alt 19 U/L 0-55 U /L Final [facility] - Laboratory: [address] Ast 19 U/L 5-34 U/L [facility] Medical - Laboratory: [address] Bun 20.8 mg/dL 8.9-25.0 mg/dL [facility] Medical - Laboratory: [address] Alk Phos 72 unit/L 40-150 unit/L Fin [facility] Medical - Laboratory: [address] High Glucose 152 mg/dL 70-99 mg/dL [facility] Medical - Laboratory: [address] Albumin 4.3 g/dL 3.4-5.1 g/dL [facility] Medical - Laboratory: [address] Creatinine 0.82 mg/dL 0.72-1.25 mg/d L [facility] Medical - Laboratory: [address] eGFR Non- >60 mL/mi n/1.73m2 Final [facility] - Laboratory: [address] High Total Bilirubin 1.6 mg/dL 0.2-1.2 mg /dL Final [facility] - Laboratory: [address] [facility] [place] eGFR - >60 mL/min/1 .73m2 [facility] - Laboratory: [address], [place] Sodium 138 mEq/L 135-145 mEq/L [facility] Medical - Laboratory: [address] [facility] [place] Potassium 4.4 mEq/L 3.5-5.3 mEq/L [facility] Medical - Laboratory: [address] [facility] [place] Chloride 101 mmol/L 98-110 mmol/L [facility] Medical - Laboratory: [address] [facility] [place] Total Protein 7.8 g/dL 6.1-8.2 g/dL [facility] Medical - Laboratory: [address] [facility] [place] Calcium 8.9 mg/dL 8.6-10.4 mg/dL [facility] Medical - Laboratory: [address], [place] Co2 27.5 mmol/L 20.0-32.0 mmol/L [facility] Medical - Laboratory: [address] [place] [address], [place] Anion Gap 10 calc Final [facility] Medical - Laboratory: [address], [place] 03/07/2020 Lipid Panel, Serum Hdl 47 mg/dL [facility] - Laboratory: [address] [place] Triglyceride 117 mg/dL <150 mg/dL [facility] - Laboratory: [address], [place] VLDL (Calculated) 23 mg/dL [facility] Medical - Laboratory: [address] [facility] [place] cholesterol/HDL Ratio 3.1 mg/dL [facility] - Laboratory: [address] [facility] [place] non-HDL Cholesterol (Calculated) 100 mg/dL <160 mg/dL [facility] Medical - Laboratory: [address] [facility] [place] Cholesterol 147 mg/dL <200 mg/dL [facility] Medical - Laboratory: [address], [place] LDL (Calculated) 77 mg/dL <130 mg/dL [facility] - Laboratory: [address], [place] 03/07/2020 TSH, Serum or Plasma Tsh 1.677 uI U/mL 0.350-4.940 uIU/mL [facility] Medical - Laboratory: [address] [facility] [place] 03/07/2020 PSA, Serum or Plasma PSA, Total 0.46 NG /mL <4.00 NG/mL Final [facility] - Laboratory: [address] [place] [address], [place] 03/07/2020 Testosterone, Total, Serum Testoster one, Total 330.65 NG/dL 240.24-870.68 NG/dL Final [facility] - Laboratory : [address] [place] [address], [place] 03/07/2020 HbA1C (Hemoglobin a1C), Blood High A1C W/ eag 8.3 % 1.0-5.7 % Final [facility] - Laboratory: [address] Average Blood Glucose (Calculated) 1 92 mg/dL Final [facility] - Laboratory: [address] [place] [address], [place] 03/07/2020 Microalbumin/creatinine, Mass Ratio, Urine Microalbumin Random Urine 28 ug/mL Final [facility] - Laboratory: [address] [place] [address] Normal Creatinine Random Urine 368.1 mg/dL 20.0-370.0 mg/dL Final [facility] - Laboratory: [address] Normal Microalbumin/creati nine (Random Urine) Ratio Calculated 8 mcg/mg creat Final [facility] Medical - [place]: [address] Allergies Code Code System Name Reaction Severity Status Onset NKDA Problems Name Status Onset Date Source Paresthesia of Lower Extremity Active 04/02/2017 Body Mass Index 30+ - Obesity Active 04/10/2017 Fatigue Active 04/10/2017 Elevated Total Bilirubin Active 04/10/2017 Hypertriglyceridemia Active 05/11/2017 Procedures None recorded. Vaccine List Vaccine Type pneumococcal polysaccharide PPV23 06/14/20180.5 mL Social History Tobacco Smoking Status Never Smoker Past Encounters 03/13/2020 Hyperglycemia Due to Type 2 Diabetes Mellitus; Gastroesophageal Reflux Disease; Dyslipidemia; Anemia Nikko Sanchez, DO: [address], [facility] [address], [place] [address], Ph. 03/07/2020 Fatigue; Hypertriglyceridemia; Type 2 Diabetes Mellitus; Hypertensive Disorder; Gastroesophageal Reflux Disease; Obesity Lachelle Mederos OCCUPATIONAL MEDICINE PHYSICIAN: [address], [facility] [place] [address], [place] [address], Ph. 02/22/2020 Subconjunctival Hemorrhage of Right Eye Diana Campos Vu, DO: [address] [facility] [address], [place] [address], Ph. History of Present Illness Chronic Disease Management: HTN, DM, Lipid Disorder CDM Reported By: Patient HPI: Type: diabetes mellitus type 2, mixed hyperlipidemia. Duration or Onset: chronic. Status: Lipids - Controlled, Diabetes - Uncontrolled. Associated Symptoms: NO NEW ASSOCIATED SYMPTOMS. Compliance: COMPLIANT with theraputic plan Reflux/GERD Reported By: Patient HPI: Symptoms heartburn. Quality: burning. Severity: moderate. Duration: present 5 or more years. Onset/Timing: gradual onset, daily. Context: non-smoker, no drug/alcohol abuse, no drug alcohol withdrawal. Alleviating Factors: proton pump inhibitors, antacids. Associated Symptoms: no frequent coughing, no feeling of fullness/mass in throat, no hoarseness, no food getting stuck, no nausea, no vomiting, not vomiting blood Note:I confirm that I received verbal consent from the patient for the virtual visit. Review of Systems Comprehensive General Adult ROS Reported By: Patient Constitutional: Constitutional: no fever Cardiovascular: Cardiovascular: no chest patricia n, no shortness of breath when walking Respiratory: Respiratory: no cough, no wh eezing, no shortness of breath Gastrointestinal: Gastrointestinal: no abdomin al pain, no nausea, no vomiting, no constipation, no diarrhea Musculoskeletal: Musculoskeletal: no muscle a ches, no muscle weakness, no arthralgias/joint pain, no swelling in the extremities Physical Exam Telemedicine/Virtual Visit Reported By: Patient Constitutional: General Appearance: healthy- appearing, well-developed. Level of Distress: NAD. Ambulation: ambulating normally Psychiatric: Insight: good judgement. Men shad Status: active and alert, normal mood, normal affect. Orientation: to time, to place, to person. Memory: recent memory normal, remote memory normal Head: Head: normocephalic, atrauma tic Eyes: Lids and Conjunctivae: non-i njected, no discharge, no pallor. EOM: EOMI. Sclerae: non-icteric ENMT: Ears: no lesions on external ear. Hearing: grossly normal. Nose: no lesions on external nose. Lips, Teeth, and Gums: no mouth or lip ulcers. Oropharynx: moist mucous membranes Neck: Neck: FROM Lungs: Respiratory effort: no dyspn ea Neurologic: Gait and Station: normal gai t, normal station. Cranial Nerves: grossly intact. Coordination and Cerebellum: no tremor Skin: Inspection and palpation: no rash, no lesions, no induration, no jaundice. Nails: normal
--- OUTSIDE RECORDS SUMMARY | 2020-04-04 08:06 | XMS REPORT | Encounter Summary ---
Author Organization Unknown Address [address] [place] [address] Phone [phone] Care Team Providers Care Eap Counselor Name Role Phone Dr. Darya Kim 3 [phone] Austen Dash MD 3 [phone] Ashvin Galvin 3 [phone] Benito Gee MD 107 [phone] Reason for Visit lab only visit Instructions 1. Fatigue PSA, serum or plasma testosterone, total, serum 2. Hypertriglyceridemia lipid panel, serum 3. Type 2 diabetes mellitus HbA1c (hemoglobin A1c), blood microalbumin/creatinine, mass ratio, u rine 4. Hypertensive disorder CMP, serum or plasma 5. Gastroesophageal reflux disease CBC w/ auto diff 6. Obesity TSH, serum or plasma body mass index: care instructions learning about healthy weight Discussion Note: None recorded. Plan of Care Reminders Provider Appointments Telemedicine 15 03/13/2020 4:00PM Lachelle jackson NP Lab CBC W/ Auto Diff 03/07/2020 [facility] - Laboratory HbA1C (Hemoglobin a1C), Blood 03/07/2020 [facility] CMP, Serum or Plasma 03/07/2020 [facility] - Laboratory TSH, Serum or Plasma 03/07/2020 [facility] - Laboratory Lipid Panel, Serum 03/07/2020 [facility] - Laboratory Microalbumin/creatinine, Mass Ratio, Urine 03/07 [facility] - Laboratory PSA, Serum or Plasma 03/07/2020 [facility] ical - Laboratory Testosterone, Total, Serum 03/07/2020 [facility] Referral None recorded. Procedures None recorded. [...] Tobacco Smoking Status Never Smoker Past Encounters 03/07/2020 Fatigue; Hypertriglyceridemia; Type 2 Diabetes Mellitus; Hypertensive Disorder; Gastroesophageal Reflux Disease; Obesity Lachelle Mederos SLEEVE WHEEL MAKER: [address], [address], [place] [address], Ph. 02/22/2020 Subconjunctival Hemorrhage of Right Eye Diana Bob, DO: [address], [address], [place] [address], Ph. History of Present Illness None recorded. Review of Systems None recorded. Physical Exam None recorded.
[2020-04-04 11:46] VITALS: BP 115/81
--- NOTE | 2020-04-04 12:19 | Operative Report ---
DATE OF PROCEDURE: 04/04/2020 SURGEON: Benito Gee MD PROCEDURE: Esophagogastroduodenoscopy with biopsies and colonoscopy with polypectomy and biopsies. INDICATIONS FOR EGD: Acid reflux, anemia. INDICATIONS FOR COLONOSCOPY: Anemia, diarrhea, history of colon polyps. MEDICATIONS: The patient was under MAC. Please see anesthesiologist's note. PROCEDURE IN DETAIL: With the patient in left lateral decubitus position, flexible fiberoptic Olympus gastroscope was introduced into the esophagus under direct visualization without any difficulty. A minute tongue of velvety red mucosa was noted to extend proximally from the GE junction that was biopsied to rule out Beasley. The scope was then advanced with ease into the stomach traversing a small hiatal hernia. The patient is status post gastric sleeve. Mucosa overlying the antrum and the body revealed some diffuse erythema and moderate edema, and biopsies were obtained and sent to stain for H pylori. Pylorus was of normal contour and shape, it was intubated with ease and the scope was advanced all the way to the second portion of the duodenum. Biopsies were obtained from the proximal second portion and duodenal bulb to rule out sprue. The scope was then withdrawn back into the stomach and it was retroflexed and some postoperative changes were noted. The scope was then straightened out, it was subsequently withdrawn. The patient tolerated the procedure well. IMPRESSION: 1. Distal esophagitis, mild. 2. Rule out Beasley esophagus. 3. Small hiatal hernia. 4. Status post gastric sleeve. 5. Gastritis, biopsied, biopsies sent to stain for Helicobacter pylori. 6. Rule out sprue. PLAN: Follow up histology. Increase Protonix to 40 mg one p.o. a.c. b.i.d. Add Carafate 1 g p.o. a.c. t.i.d. and at bedtime. PROCEDURE IN DETAIL: The patient was then turned around after adequate lubrication of the anal canal. A flexible fiberoptic Olympus colonoscope was inserted into the rectum with ease and advanced all the way to the cecum. A minute polyp was removed per the cold biopsy forceps from the cecum. The ileocecal valve was intubated and the scope was advanced into the terminal ileum. Biopsies were obtained. Mucosa overlying the ascending and the transverse appeared to be within normal limits. There was some mild patchy inflammatory changes noted in the left colon and random biopsies were obtained. Approximately 5 mm sessile polyp was removed per hot snare polypectomy from the descending colon. Some of the inflammatory findings were noted in the rectum and biopsies were obtained. The scope was then retroflexed into the distal rectum and small internal hemorrhoids were noted, none of which was actively bleeding. The scope was then straightened out, it was subsequently withdrawn after securing an adequate stool specimen that was sent for appropriate stool studies. The patient tolerated procedure well. IMPRESSION: 1. Cecal polyp, minute, removed per cold biopsy forceps. 2. Descending colon polyp hot snared. 3. Mild patchy left-sided colitis. 4. Internal hemorrhoids, none actively bleeding. PLAN: Follow up histology. Follow up stool studies. Initiate Bentyl 10 mg one p.o. t.i.d. The patient might benefit from a followup colonoscopy in 3 years. Benito Gee MD [facility] [place] /[id number] cc: Austen Henson MD
[2020-04-04 15:26] LABS: WBC,FECAL (FECAL LACTOFERRIN) NEGATIVE (NEGATIVE)
[2020-04-04 15:27] LABS: C DIFFICILE TOXIN A&B AMP PROB NEGATIVE (NEGATIVE)
== END | disposition home or self-care (01) ==
LOC: OR 08:03
PROVIDERS: ATTEND Internal Medicine Gastroenterology
DX: D64.89 Other specified anemias (principal); D12.0 Benign neoplasm of cecum; D12.4 Benign neoplasm of descending colon; K29.50 Unspecified chronic gastritis without bleeding; K51.50 Left sided colitis without complications; K21.9 Gastro-esophageal reflux disease without esophagitis; K20.9 Esophagitis, unspecified; K44.9 Diaphragmatic hernia without obstruction or gangrene; K22.8 Other specified diseases of esophagus; K64.8 Other hemorrhoids; Z98.84 Bariatric surgery status; I10 Essential (primary) hypertension; E78.00 Pure hypercholesterolemia, unspecified; E11.9 Type 2 diabetes mellitus without complications; Z01.810 Encounter for preprocedural cardiovascular examination; Z01.812 Encounter for preprocedural laboratory examination; Z11.59 Encounter for screening for other viral diseases; Z79.84 Long term (current) use of oral hypoglycemic drugs; Z68.30 Body mass index [BMI] 30.0-30.9, adult
CPT/HCPCS: 36415; 43239; 45380; 45385; 82948; 83630; 83993; 87045; 87177; 87328; 87493; 87635; 93005; J1610; J2001; J2250; J2704; J3010; 43235